=== PATIENT | male | born 1965 | race Caucasian/White ===

== ENCOUNTER 2017-01-21 15:05 | Inpatient (IN) | payer MEDICAID ==
[~2017-01-21] VITALS: Ht 180.3 cm; Wt 90.7 kg
[~2017-01-21 15:05] MED LIST: CAR3125T PO; CLOP75TA41 PO; DIG0125T PO; FURO40TA PO; GABA100C PO; INSLISPI SC; LEVEMIR SC; LISI-275 PO; PANT40TA2 PO; SPIR25TA88 PO
[2017-01-21 15:49] LABS: Urine RBC None Seen /hpf (0 - 3)
[2017-01-21 16:08] LABS: Basophils # (auto) 0.1 uL; Basophils % (auto) 0.8 % (0.0-2.0); Eosinophils # (auto) 0.1 uL; Hematocrit 43.6 % (41.0-53.0); Hemoglobin 14.3 g/dL (13.5-17.5); Lymphocytes # (auto) 1.6 uL; Lymphocytes % (auto) 23.1 % (10.0-50.0); Mean Corpuscular Hemoglobin 29.6 pg (28.0-32.0); Mean Corpuscular Hgb Conc. 32.8 g/dL (32.0-36.0); Mean Corpuscular Volume 90.2 fL (80.0-100.0); Mean Platelet Volume 7.6 fL (6.9-10.8); Monocytes # (auto) 0.6 uL; Monocytes % (auto) 8.8 % (0.0-12.0); Neutrophils # (auto) 4.4 uL; Neutrophils % (auto) 65.3 % (37.0-80.0); Nucleated Red Blood Cells % 0.1 %; Platelet Count (auto) 199 10^3/uL (140-450); Red Cell Distribution Width 18.1 % (11.8-14.3); White Blood Cell 6.7 10^3/uL (4.4-10.8)
[2017-01-21 16:11] LABS: Albumin 3.2 g/dL (3.4-5.0); Anion Gap 12 (5-15); Aspartate Aminotransferase 18 U/L (15-37); BUN/Creatinine Ratio 18.2; Blood Urea Nitrogen 16 mg/dL (7-18); Calcium 8.3 mg/dL (8.5-10.1); Carbon Dioxide 19 mmol/L (21-32); Chloride 109 mmol/L (98-107); GFR African American 117 mL/min; GFR Non-African American 97 mL/min; Glucose 279 mg/dL (74-106); Sodium 140 mmol/L (136-145)
[2017-01-21 16:15] LABS: Urine Bilirubin Negative (Negative); Urine Blood Negative /uL (Negative); Urine Color Yellow (Yellow); Urine Glucose 4+ mg/dL (Normal); Urine Ketone Negative (Negative); Urine Nitrite Negative (Negative); Urine Squamous Epithelial Cell FEW /hpf (<5); Urine Urobilinogen Normal (Negative)
[2017-01-21 16:16] LABS: Alkaline Phosphatase 89 U/L (45-117); Bilirubin, Total 0.7 mg/dL (0.2-1.0); Total Protein 7.1 g/dL (6.4-8.2)
[2017-01-21] MEDS ORDERED: ASPirin 81 mg TAB PO ONE (17:45)
[2017-01-21] MEDS ORDERED: METOPROLOL TARTRATE 50 MG TAB PO ONE (17:45)
[2017-01-21] MEDS ORDERED: METOPROLOL TARTRATE 1MG/1ML-5ML VIAL IV ONE (17:45)
[2017-01-21] MEDS ORDERED: LORazepam 2MG/ML-1ML VIAL IV ONE (17:45)
[2017-01-21] MEDS ORDERED: DEXTROSE (50%) 50ML SYRG IV PRN (18:15)
[2017-01-21] MEDS ORDERED: METOPROLOL TARTRATE 25 MG TAB PO ONE (18:15)
[2017-01-21] MEDS ORDERED: NITROGLYCERIN 0.4 MG SL TAB SL PRN (18:15)
[2017-01-21] MEDS ORDERED: MORPHINE SULF INJ 2 MG/ML SYRINGE 1ML IV PRN (18:15)
[2017-01-21 20:15] VITALS: BP_SYST 108; BP_SYST 119; BP_DIAS 77; BP_DIAS 82
[2017-01-21] MEDS: METOPROLOL TARTRATE 25 MG TAB PO SCH (21:56)
[2017-01-21] MEDS: ACCU-CHEK COMFORT CURVE STRIP VI SCH (22:01)
[2017-01-21] MEDS: InsuLIN REG 1unit/0.01ml Soln (100units/ml) SC SCH ×2 (22:02→22:12)
[2017-01-22] MEDS ORDERED: ACETAMINOPHEN 500 MG TAB PO PRN (04:15)
[2017-01-22 05:00] VITALS: BP 109/79
[2017-01-22] MEDS: ONDANSETRON HCL 4 MG/2 ML VIAL IV PRN (05:12)
[2017-01-22] MEDS: HYDROcodone-ACET 5/325MG TAB PO PRN ×2 (05:12→21:37)
[2017-01-22] MEDS: InsuLIN REG 1unit/0.01ml Soln (100units/ml) SC SCH ×4 (06:37→21:58)
[2017-01-22] MEDS: ACCU-CHEK COMFORT CURVE STRIP VI SCH ×4 (06:37→21:57)
[2017-01-22 07:11] LABS: Anion Gap 10 (5-15); BUN/Creatinine Ratio 26.3; Blood Urea Nitrogen 20 mg/dL (7-18); Calcium 8.4 mg/dL (8.5-10.1); Carbon Dioxide 17 mmol/L (21-32); Chloride 109 mmol/L (98-107); GFR African American 139 mL/min; GFR Non-African American 114 mL/min; Glucose 198 mg/dL (74-106); Potassium 4.5 mmol/L (3.5-5.1); Sodium 136 mmol/L (136-145)
[2017-01-22 08:51] VITALS: BP 94/65
[2017-01-22] MEDS ORDERED: FUROSEMIDE 40 MG TAB PO SCH (10:00)
[2017-01-22] MEDS: ASPirin 81 mg TAB PO SCH (10:55)
[2017-01-22] MEDS: LISINOPRIL 5 MG TAB PO SCH (11:00)
[2017-01-22] MEDS: SPIRONOLACTONE 25 MG TAB PO SCH (11:00)
[2017-01-22] MEDS: DIGOXIN 0.125 MG TAB PO SCH (11:00)
[2017-01-22] MEDS: METOPROLOL TARTRATE 25 MG TAB PO SCH ×2 (11:00→21:57)
[2017-01-22] MEDS: PANTOPRAZOLE 40 MG TAB PO SCH (11:00)
[2017-01-22] MEDS: POTASSIUM CHL 20 Meq TABLET PO SCH (11:01)
[2017-01-22] MEDS: AMIODARONE HCL 200 MG TAB PO SCH ×2 (11:01→21:37)
[2017-01-22] MEDS ORDERED: FUROSEMIDE 20 MG/2 ML VIAL IV ONE (11:30)
[2017-01-22] MEDS ORDERED: POTASSIUM CHL 20 Meq TABLET PO ONE (11:30)
[2017-01-22 12:51] VITALS: BP 93/50
[2017-01-22] MEDS ORDERED: PATIENTS OWN MEDICATION (xarelto 20 MG) PO SCH (17:00)
[2017-01-22] MEDS: RIVAROXABAN 20 MG TAB PO SCH (17:01)
[2017-01-22 17:03] VITALS: BP 164/74
[2017-01-22 22:00] VITALS: BP 127/70
[2017-01-23 05:00] VITALS: BP 111/72
[2017-01-23] MEDS: InsuLIN REG 1unit/0.01ml Soln (100units/ml) SC SCH ×5 (06:26→22:02)
[2017-01-23] MEDS: ACCU-CHEK COMFORT CURVE STRIP VI SCH ×4 (07:18→21:54)
[2017-01-23 08:40] LABS: BUN/Creatinine Ratio 23.7; Calcium 8.3 mg/dL (8.5-10.1); Potassium 4.2 mmol/L (3.5-5.1)
[2017-01-23 09:00] VITALS: BP 105/75
[2017-01-23] MEDS: POTASSIUM CHL 20 Meq TABLET PO SCH (09:33)
[2017-01-23] MEDS: AMIODARONE HCL 200 MG TAB PO SCH ×2 (09:33→21:53)
[2017-01-23] MEDS: SPIRONOLACTONE 25 MG TAB PO SCH (09:33)
[2017-01-23] MEDS: PANTOPRAZOLE 40 MG TAB PO SCH (09:33)
[2017-01-23] MEDS: FUROSEMIDE 20 MG TAB PO SCH (09:34)
[2017-01-23] MEDS: LISINOPRIL 5 MG TAB PO SCH (09:34)
[2017-01-23] MEDS: ASPirin 81 mg TAB PO SCH (09:34)
[2017-01-23] MEDS: DIGOXIN 0.125 MG TAB PO SCH (09:34)
[2017-01-23] MEDS: METOPROLOL TARTRATE 25 MG TAB PO SCH ×2 (09:35→22:00)
[2017-01-23] MEDS: HYDROcodone-ACET 5/325MG TAB PO PRN (11:42)
[2017-01-23 13:00] VITALS: BP 105/58
[2017-01-23] MEDS: ONDANSETRON HCL 4 MG/2 ML VIAL IV PRN (15:20)
[2017-01-23 16:56] VITALS: BP 105/71
[2017-01-23] MEDS: RIVAROXABAN 20 MG TAB PO SCH (18:10)
[2017-01-23] MEDS ORDERED: ONDANSETRON HCL 4 MG/2 ML VIAL IV ONE (19:00)
[2017-01-23] MEDS: TEMAZEPAM 15 MG CAP PO PRN (21:53)
[2017-01-23 22:00] VITALS: BP 104/66
[2017-01-24] MEDS: ONDANSETRON HCL 4 MG/2 ML VIAL IV PRN ×2 (01:38→13:29)
[2017-01-24 05:00] VITALS: BP 110/77
[2017-01-24] MEDS: ACCU-CHEK COMFORT CURVE STRIP VI SCH ×4 (06:47→21:48)
[2017-01-24] MEDS: InsuLIN REG 1unit/0.01ml Soln (100units/ml) SC SCH ×4 (06:48→21:48)
[2017-01-24 07:00] VITALS: BP 117/74
[2017-01-24] MEDS ORDERED: fentaNYL CITRATE 100 MCG/2 ML VL ONE (07:22)
[2017-01-24] MEDS ORDERED: MIDAZOLAM HCL 1MG/1ML-2 ML VIAL ONE (07:22)
[2017-01-24] MEDS ORDERED: LIDOCAINE VISCOUS 2% 15ML UD ONE (07:23)
[2017-01-24] MEDS ORDERED: NALOXONE HCL 0.4 MG/ML VIAL ONE (07:24)
[2017-01-24] MEDS ORDERED: FLUMAZENIL 0.1 MG/ML INJ 10ML MDV IV ONE (07:24)
[2017-01-24] MEDS ORDERED: LIDOCAINE VISCOUS 2% 15ML UD PO ONE (07:30)
[2017-01-24] MEDS ORDERED: fentaNYL CITRATE 100 MCG/2 ML VL IV ONE (07:30)
[2017-01-24] MEDS ORDERED: MIDAZOLAM HCL 1MG/1ML-2 ML VIAL IV ONE (07:30)
[2017-01-24] MEDS ORDERED: diphenhdrAMINE HCL 50 MG/1 ML VL ONE (08:02)
[2017-01-24] MEDS ORDERED: diphenhdrAMINE HCL 50 MG/1 ML VL IV ONE (08:45)
[2017-01-24] MEDS: DIGOXIN (250MCG/ML) 2 ML AMPULE IV ONE ×2 (08:48→16:07)
[2017-01-24] MEDS: SPIRONOLACTONE 25 MG TAB PO SCH (10:41)
[2017-01-24] MEDS: AMIODARONE HCL 200 MG TAB PO SCH ×2 (10:43→21:47)
[2017-01-24] MEDS: DIGOXIN 0.125 MG TAB PO SCH (10:43)
[2017-01-24] MEDS: PANTOPRAZOLE 40 MG TAB PO SCH (10:43)
[2017-01-24] MEDS: POTASSIUM CHL 20 Meq TABLET PO SCH (10:43)
[2017-01-24] MEDS: FUROSEMIDE 20 MG TAB PO SCH (10:44)
[2017-01-24] MEDS: METOPROLOL TARTRATE 25 MG TAB PO SCH ×2 (10:44→21:49)
[2017-01-24] MEDS: ASPirin 81 mg TAB PO SCH (10:44)
[2017-01-24] MEDS: LISINOPRIL 5 MG TAB PO SCH (10:44)
[2017-01-24 11:30] VITALS: BP 117/84
[2017-01-24 16:00] VITALS: BP 96/62
[2017-01-24] MEDS: RIVAROXABAN 20 MG TAB PO SCH (18:02)
[2017-01-24] MEDS: TEMAZEPAM 15 MG CAP PO PRN (21:47)
[2017-01-25 05:00] VITALS: BP 96/64
[2017-01-25] MEDS: ACCU-CHEK COMFORT CURVE STRIP VI SCH ×2 (07:01→11:30)
[2017-01-25] MEDS: InsuLIN REG 1unit/0.01ml Soln (100units/ml) SC SCH ×2 (07:01→11:30)
[2017-01-25 07:25] VITALS: BP 100/67
[2017-01-25 08:00] VITALS: BP 100/67
[2017-01-25] MEDS: POTASSIUM CHL 20 Meq TABLET PO SCH (09:37)
[2017-01-25] MEDS: AMIODARONE HCL 200 MG TAB PO SCH (09:37)
[2017-01-25] MEDS: ASPirin 81 mg TAB PO SCH (09:37)
[2017-01-25] MEDS: METOPROLOL TARTRATE 25 MG TAB PO SCH (09:37)
[2017-01-25] MEDS: PANTOPRAZOLE 40 MG TAB PO SCH (09:38)
[2017-01-25] MEDS: SPIRONOLACTONE 25 MG TAB PO SCH (09:38)
[2017-01-25] MEDS: DIGOXIN 0.125 MG TAB PO SCH (09:38)
[2017-01-25] MEDS: LISINOPRIL 5 MG TAB PO SCH (09:39)
[2017-01-25] MEDS: FUROSEMIDE 20 MG TAB PO SCH (09:39)
[2017-01-25 10:49] VITALS: BP 126/77
[2017-01-25 12:08] VITALS: BP 116/79
== END 2017-01-25 14:27 | disposition home or self-care (01) | DRG 194 ==
LOC: ER 15:05 → TELE 15:06 → TELE-CENTR 20:15
PROVIDERS: ADMIT Internal Medicine; ATTEND Internal Medicine
PROC: B24BZZ4 Ultrasonography of Heart with Aorta, Transesophageal (ICD-10-PCS; principal; 2017-01-24)
PROC: 5A2204Z Restoration of Cardiac Rhythm, Single (ICD-10-PCS; 2017-01-24)
DX: I11.0 Hypertensive heart disease with heart failure (principal); D68.69 Other thrombophilia; I42.9 Cardiomyopathy, unspecified; E11.65 Type 2 diabetes mellitus with hyperglycemia; I08.1 Rheumatic disorders of both mitral and tricuspid valves; I48.3 Typical atrial flutter; I48.91 Unspecified atrial fibrillation; I50.23 Acute on chronic systolic (congestive) heart failure; F17.210 Nicotine dependence, cigarettes, uncomplicated; Z79.01 Long term (current) use of anticoagulants; Z79.4 Long term (current) use of insulin; I25.2 Old myocardial infarction; Z79.899 Other long term (current) drug therapy; Z91.19 Patient's noncompliance with other medical treatment and regimen; Z83.3 Family history of diabetes mellitus; Z82.49 Family history of ischemic heart disease and other diseases of the circulatory system; Z80.2 Family history of malignant neoplasm of other respiratory and intrathoracic organs
CPT/HCPCS: 36415; 71020; 80048; 80053; 80162; 80307; 81001; 82962; 83735; 84484; 85025; 92960; 93005; 93312; 96374; 96375; 99152; 99153; A4565; J1815; J2250; J2405

== ENCOUNTER 2017-04-19 23:13 | Emergency (ER) | payer MEDICAID ==
[~2017-04-19] VITALS: Ht 180.3 cm; Wt 90.7 kg
[~2017-04-19 23:13] MED LIST changes: -CAR3125T PO; -CLOP75TA41 PO; -DIG0125T PO
[2017-04-19 23:20] VITALS: BP 131/71
== END 2017-04-20 01:06 | disposition left against medical advice (07) ==
LOC: ER 23:13
DX: R06.02 Shortness of breath (principal); Z53.21 Procedure and treatment not carried out due to patient leaving prior to being seen by health care provider
CPT/HCPCS: 71020; 93005

== ENCOUNTER 2017-08-23 19:37 | Emergency (ER) | payer MEDICAID ==
[~2017-08-23] VITALS: Ht 180.3 cm; Wt 90.7 kg
[2017-08-23 21:19] LABS: Basophils # (auto) 0 uL; Basophils % (auto) 0.6 % (0.0-2.0); Eosinophils # (auto) 0 uL; Eosinophils % (auto) 0.5 % (0.0-7.0); Hematocrit 51.9 % (41.0-53.0); Hemoglobin 16.4 g/dL (13.5-17.5); Lymphocytes # (auto) 1.2 uL; Lymphocytes % (auto) 15.6 % (10.0-50.0); Mean Corpuscular Hemoglobin 29.4 pg (28.0-32.0); Mean Corpuscular Hgb Conc. 31.6 g/dL (32.0-36.0); Mean Corpuscular Volume 92.8 fL (80.0-100.0); Monocytes # (auto) 0.7 uL; Monocytes % (auto) 9.1 % (0.0-12.0); Neutrophils # (auto) 5.7 uL; Neutrophils % (auto) 74.2 % (37.0-80.0); Nucleated Red Blood Cells % 0.2 %; Platelet Count (auto) 258 10^3/uL (140-450); Red Blood Cells 5.59 10^6/uL (4.5-5.90); Red Cell Distribution Width 16.7 % (11.8-14.3); White Blood Cell 7.7 10^3/uL (4.4-10.8)
[2017-08-23 21:40] LABS: Anion Gap 12 (5-15); Carbon Dioxide 17 mmol/L (21-32); Chloride 101 mmol/L (98-107); Potassium 4.8 mmol/L (3.5-5.1); Sodium 130 mmol/L (136-145)
[2017-08-23 21:41] LABS: Alanine Aminotransferase 83 U/L (16-61); Alkaline Phosphatase 239 U/L (45-117); Aspartate Aminotransferase 97 U/L (15-37); Bilirubin, Total 1.1 mg/dL (0.2-1.0); Blood Urea Nitrogen 29 mg/dL (7-18); Calcium 8.4 mg/dL (8.5-10.1); GFR African American 81 mL/min; GFR Non-African American 67 mL/min; Glucose 360 mg/dL (74-106)
[2017-08-23 21:42] LABS: Albumin 2.8 g/dL (3.4-5.0); Amylase 33 U/L (25-115); Lipase 211 U/L (73-393); Magnesium 1.9 mg/dL (1.6-2.6); Total Protein 7.6 g/dL (6.4-8.2)
[2017-08-23] MEDS ORDERED: SODIUM CHLORIDE 0.9% 1,000 ML IV ONE (21:45)
[2017-08-24 05:14] VITALS: BP 133/87
[2017-08-24] MEDS ORDERED: FUROSEMIDE 20 MG/2 ML VIAL IV ONE (06:00)
== END 2017-08-24 06:32 | disposition home or self-care (01) ==
LOC: ER 19:37
DX: I11.0 Hypertensive heart disease with heart failure (principal); I50.9 Heart failure, unspecified; I48.91 Unspecified atrial fibrillation; E11.9 Type 2 diabetes mellitus without complications; F17.210 Nicotine dependence, cigarettes, uncomplicated; F12.10 Cannabis abuse, uncomplicated; I25.2 Old myocardial infarction
CPT/HCPCS: 36415; 71046; 74176; 80053; 82150; 83690; 83735; 83880; 84484; 85025; 93005; 96361; 96374; 99285; J1940

== ENCOUNTER 2019-02-12 18:31 | Inpatient (IN) | payer MEDICAID ==
[~2019-02-12] VITALS: Ht 152.4 cm; Wt 97.5 kg
[~2019-02-12 18:31] MED LIST changes: +FURO1TAB31 PO; -FURO40TA PO
[2019-02-12 19:13] LABS: Basophils # (auto) 0.1 uL; Basophils % (auto) 0.9 % (0.0-2.0); Eosinophils # (auto) 0.1 uL; Eosinophils % (auto) 0.6 % (0.0-7.0); Hemoglobin 16.2 g/dL (13.5-17.5); Mean Corpuscular Hemoglobin 30.6 pg (28.0-32.0); Mean Corpuscular Volume 92.7 fL (80.0-100.0); Monocytes # (auto) 0.6 uL; Monocytes % (auto) 5.8 % (0.0-12.0); Neutrophils % (auto) 83.7 % (37.0-80.0); Platelet Count (auto) 279 10^3/uL (140-450); Red Blood Cells 5.29 10^6/uL (4.5-5.90); Red Cell Distribution Width 15.1 % (11.8-14.3); White Blood Cell 10.7 10^3/uL (4.4-10.8)
[2019-02-12 19:22] LABS: Alanine Aminotransferase 33 U/L (16-61); Albumin 2.9 g/dL (3.4-5.0); Anion Gap 9 (5-15); Aspartate Aminotransferase 13 U/L (15-37); BUN/Creatinine Ratio 13.5; Blood Urea Nitrogen 19 mg/dL (7-18); Calcium 8.6 mg/dL (8.5-10.1); Carbon Dioxide 23 mmol/L (21-32); Chloride 99 mmol/L (98-107); GFR African American 67 mL/min; GFR Non-African American 56 mL/min; Potassium 5.2 mmol/L (3.5-5.1); Sodium 131 mmol/L (136-145)
[2019-02-12 19:26] LABS: Alkaline Phosphatase 202 U/L (45-117); Bilirubin, Total 0.8 mg/dL (0.2-1.0); Total Protein 7.5 g/dL (6.4-8.2)
[2019-02-12 19:30] LABS: Glucose 457 mg/dL (74-106)
[2019-02-12] MEDS ORDERED: SODIUM CHLORIDE 0.9% 1,000 ML IV ONE (19:44)
[2019-02-12] MEDS ORDERED: CLINDAMYCIN 600MG IV 50 ML IV ONE (19:45)
[2019-02-12] MEDS ORDERED: ONDANSETRON HCL 4 MG/2 ML VIAL IV ONE (19:45)
[2019-02-12] MEDS ORDERED: MORPHINE SULFATE 4 MG/ML SYR/VIAL IV ONE (19:45)
[2019-02-13] MEDS ORDERED: ONDANSETRON HCL 4 MG/2 ML VIAL IV PRN (02:45)
[2019-02-13] MEDS ORDERED: ACETAMINOPHEN 325 MG TAB PO PRN (02:45)
[2019-02-13] MEDS ORDERED: TEMAZEPAM 15 MG CAP PO PRN (02:45)
[2019-02-13] MEDS ORDERED: FUROSEMIDE 20 MG/2 ML VIAL IV ONE (02:45)
[2019-02-13] MEDS ORDERED: ALBUTEROL SULF 2.5 MG/0.5ML(0.5%) NEB SOLN NEB PRN (02:45)
[2019-02-13] MEDS ORDERED: DEXTROSE (50%) 50ML SYRG IV PRN (02:45)
[2019-02-13 03:25] LABS: BUN/Creatinine Ratio 13.9; Potassium 4.3 mmol/L (3.5-5.1)
[2019-02-13] MEDS: cefTRIAXone 1GM/50ML D5W 50 ML IV SCH ×2 (03:52→21:00)
[2019-02-13 04:07] VITALS: BP 111/74
[2019-02-13] MEDS: PANTOPRAZOLE 40 MG TAB PO SCH (05:26)
[2019-02-13] MEDS: CLINDAMYCIN 600MG IV 50 ML IV SCH ×3 (05:26→21:35)
[2019-02-13] MEDS: GABAPENTIN 100 MG CAP PO SCH ×3 (05:26→21:35)
[2019-02-13] MEDS: InsuLIN REG 1unit/0.01ml Soln (100units/ml) SC SCH ×4 (05:26→21:40)
[2019-02-13] MEDS: ACCU-CHEK COMFORT CURVE STRIP VI SCH ×4 (05:26→21:36)
--- NOTE | 2019-02-13 07:05 | NUR ---
Respiratory note: PT IS AWAKE, AND ALERT. NO RESPIRATORY DISTRESS NOTED. SPO2 97%, HR 52, RR 18, BS CLEAR T/O. NO PRN MEDNEB TX INDICATED. PT INFORMED TO PUSH CALL BUTTON IF INCREASED WOB, SOB, OR WHEEZING OCCUR.
--- NOTE | 2019-02-13 07:50 | NUR ---
Patient in bed, asleep. No acute distress noted.
[2019-02-13 09:00] VITALS: BP 127/70
[2019-02-13] MEDS: LISINOPRIL 5 MG TAB PO SCH (09:43)
[2019-02-13] MEDS: SPIRONOLACTONE 25 MG TAB PO SCH (09:43)
[2019-02-13] MEDS: FUROSEMIDE 40 MG TAB PO SCH (09:43)
[2019-02-13] MEDS ORDERED: ASPirin 81 mg TAB PO ONE (11:15)
[2019-02-13] MEDS: HYDROcodone-ACET 5/325MG TAB PO PRN (11:37)
--- NOTE | 2019-02-13 11:37 | NUR ---
Patient stated his lower leg pain at 10/10 at this time. Rankin 5/325 PO given for pain as ordered.
--- NOTE | 2019-02-13 12:18 | NUR ---
Photos taken of the bilateral lower extremities. Wound Care forms placed on the Wound Care tray, camera returned to [facility].
[2019-02-13 13:00] VITALS: BP 130/84
[2019-02-13 17:00] VITALS: BP 127/80
[2019-02-13] MEDS: INSULIN LANTUS (GLARGINE) 1 /0.01ml (100units/ml) SC SCH (21:40)
[2019-02-13] MEDS: CARVEDILOL 3.125 MG TAB PO SCH (21:58)
[2019-02-13 22:00] VITALS: BP 127/77
[2019-02-13 22:21] LABS: Urine Bacteria NONE SEEN /hpf (None Seen); Urine Blood Negative /uL (Negative); Urine Specific Gravity 1.023 (1.001-1.035); Urine WBC <1 /hpf (0 - 3)
[2019-02-14 05:00] VITALS: BP 123/72
[2019-02-14] MEDS: InsuLIN REG 1unit/0.01ml Soln (100units/ml) SC SCH ×3 (05:38→18:19)
[2019-02-14] MEDS: GABAPENTIN 100 MG CAP PO SCH ×3 (05:38→22:08)
[2019-02-14] MEDS: CLINDAMYCIN 600MG IV 50 ML IV SCH ×3 (05:38→23:11)
[2019-02-14] MEDS: ACCU-CHEK COMFORT CURVE STRIP VI SCH ×3 (05:38→18:18)
[2019-02-14] MEDS: PANTOPRAZOLE 40 MG TAB PO SCH (05:38)
[2019-02-14 06:13] LABS: Basophils # (auto) 0 uL; Basophils % (auto) 0.6 % (0.0-2.0); Eosinophils # (auto) 0.1 uL; Eosinophils % (auto) 1.2 % (0.0-7.0); Hematocrit 44.5 % (41.0-53.0); Hemoglobin 14.9 g/dL (13.5-17.5); Lymphocytes # (auto) 1.1 uL; Lymphocytes % (auto) 12.9 % (10.0-50.0); Mean Corpuscular Hemoglobin 30.8 pg (28.0-32.0); Mean Corpuscular Hgb Conc. 33.5 g/dL (32.0-36.0); Mean Corpuscular Volume 91.9 fL (80.0-100.0); Monocytes # (auto) 0.5 uL; Monocytes % (auto) 6.2 % (0.0-12.0); Neutrophils # (auto) 6.7 uL; Neutrophils % (auto) 79.1 % (37.0-80.0); Nucleated Red Blood Cells % 0.1 %; Platelet Count (auto) 255 10^3/uL (140-450); Red Blood Cells 4.84 10^6/uL (4.5-5.90); Red Cell Distribution Width 14.8 % (11.8-14.3); White Blood Cell 8.5 10^3/uL (4.4-10.8)
[2019-02-14 07:06] LABS: BUN/Creatinine Ratio 22.1; Potassium 4.3 mmol/L (3.5-5.1)
--- NOTE | 2019-02-14 08:00 | NUR ---
Patient asleep, no acute distress noted. About 900 ml of clear, yellowish urine in the urinal noted.
[2019-02-14 09:00] VITALS: BP 120/74
--- NOTE | 2019-02-14 10:48 | NUR ---
Patient came from the bathroom.
[2019-02-14] MEDS: LISINOPRIL 5 MG TAB PO SCH (10:50)
[2019-02-14] MEDS: ASPirin 81 mg TAB PO SCH (10:51)
[2019-02-14] MEDS: SPIRONOLACTONE 25 MG TAB PO SCH (10:51)
[2019-02-14] MEDS: CARVEDILOL 3.125 MG TAB PO SCH ×2 (10:51→22:08)
[2019-02-14] MEDS: FUROSEMIDE 40 MG TAB PO SCH (10:52)
--- NOTE | 2019-02-14 11:30 | NUR ---
WOUND CARE NOTE: IN TO SEE PATIENT AT THIS TIME PER WOUND CARE CONSULT REQUEST. PATIENT WAS ADMITTED TO [facility] WITH DIAGNOSIS OF RLE CELLULITIS. CURRENT DAVID SCORE IS 18. WOUND PHOTO WAS TAKEN UPON ADMIT, BY BEDSIDE NURSE FOR REFERENCE. PATIENT HAS LONGSTANDING HISTORY WITH DIABETES. HE STATES THAT HE HAD MULTIPLE BOUTS WITH WOUNDS TO BOTH LOWER EXTREMITIES. HE DOES NOT RECALL ANY TRAUMA TO THE LEGS RECENTLY. HE IS NOTED TO HAVE ERYTHEMA AND EDEMA TO BOTH LEGS, MORE SO ON THE RIGHT LEG. THERE IS A LARGE SERUM FILLED BLISTER NOTED TO RIGHT LATERAL CALF, MEASURING 5 X 5.5 CM. NO DRAINAGE NOTED. PERIWOUND SKIN SURROUNDING THE BLISTER IS INDURATED. ELEVATED BOTH LEGS WITH PILLOWS FOR EDEMA CONTROL. APPLIED OPTIFOAM GENTLE DRESSING TO BLISTER ON RIGHT LATERAL KNEE. RECOMMEND: SKIN/WOUND CARE PLAN, PRN DRESSING CHANGE TO BLISTER ON RIGHT LATERAL KNEE, ELEVATION OF BOTH LOWER EXTREMITIES ONTO PILLOWS FOR EDEMA CONTROL, DIETARY CONSULT FOR WOUNDS, CONTINUED MONITORING BY WOUND CARE TEAM. Addendum: 02/14/19 at 1704 by Yu Perla RN Amended: Links added.
[2019-02-14 13:00] VITALS: BP 129/69
--- NOTE | 2019-02-14 15:03 | NUR ---
[id number] Yvonne (P# [phone]) called, asking if patient is going home today. Explained to Yvonne we're still waiting for the doctor to come over. Yvonne said to call her if patient is going to be discharged today, requested to transfer her call to patient's room. Transferred the call to patient's room.
--- NOTE | 2019-02-14 15:04 | NUR ---
Patient refused to pickle water pump operator the bedside phone, verbalized "I don't want to talk to anybody right now." Patient goes back to sleep.
[2019-02-14 17:00] VITALS: BP 124/88
--- NOTE | 2019-02-14 17:08 | NUR ---
Dr. Irizarry at bedside. to put in new orders.
[2019-02-14] MEDS: Ensure HIGH Protein Chocolate 8oz Bottle PO SCH (18:00)
--- NOTE | 2019-02-14 19:20 | NUR ---
Opening Shift Note Assumed care of patient, awake and alert. No S/S of distress/SOB or pain. Bed in lowest locked position, side rails up x2, call light within reach. Instructed on POC and to call for assist PRN, will continue to monitor for changes Q1hr and PRN.
[2019-02-14] MEDS: cefTRIAXone 1GM/50ML D5W 50 ML IV SCH (22:08)
[2019-02-14] MEDS: INSULIN LANTUS (GLARGINE) 1 /0.01ml (100units/ml) SC SCH (23:11)
[2019-02-15] MEDS: ACCU-CHEK COMFORT CURVE STRIP VI SCH ×4 (00:36→17:27)
[2019-02-15] MEDS: InsuLIN REG 1unit/0.01ml Soln (100units/ml) SC SCH ×4 (00:37→17:28)
[2019-02-15 05:14] VITALS: BP 129/73
[2019-02-15 06:09] LABS: Basophils # (auto) 0.1 uL; Basophils % (auto) 0.7 % (0.0-2.0); Eosinophils # (auto) 0.1 uL; Eosinophils % (auto) 1.3 % (0.0-7.0); Hematocrit 48.5 % (41.0-53.0); Hemoglobin 16.4 g/dL (13.5-17.5); Lymphocytes # (auto) 1.4 uL; Lymphocytes % (auto) 15.7 % (10.0-50.0); Mean Corpuscular Hemoglobin 31.2 pg (28.0-32.0); Mean Corpuscular Hgb Conc. 33.7 g/dL (32.0-36.0); Mean Corpuscular Volume 92.5 fL (80.0-100.0); Monocytes # (auto) 0.6 uL; Monocytes % (auto) 6.5 % (0.0-12.0); Neutrophils % (auto) 75.8 % (37.0-80.0); Nucleated Red Blood Cells % 0.1 %; Platelet Count (auto) 288 10^3/uL (140-450); Red Blood Cells 5.25 10^6/uL (4.5-5.90); Red Cell Distribution Width 14.3 % (11.8-14.3); White Blood Cell 9.2 10^3/uL (4.4-10.8)
[2019-02-15] MEDS: GABAPENTIN 100 MG CAP PO SCH ×3 (06:25→22:12)
[2019-02-15] MEDS: PANTOPRAZOLE 40 MG TAB PO SCH (06:25)
[2019-02-15] MEDS: CLINDAMYCIN 600MG IV 50 ML IV SCH ×3 (06:25→23:01)
[2019-02-15] MEDS: HYDROcodone-ACET 5/325MG TAB PO PRN ×2 (06:37→22:26)
--- NOTE | 2019-02-15 06:50 | NUR ---
Closing Note Patient lying in bed, eyes closed, respirations even and unlabored, appears asleep. No s/s of distress. Bed in lowest locked position, side rails up x2, call light within reach. Will endorse care to dayshift RN.
[2019-02-15 06:55] LABS: Calcium 8.5 mg/dL (8.5-10.1); Potassium 4.4 mmol/L (3.5-5.1)
--- NOTE | 2019-02-15 07:45 | NUR ---
Patient in bed, asleep, no acute distress noted.
[2019-02-15] MEDS: Ensure HIGH Protein Chocolate 8oz Bottle PO SCH ×3 (08:00→18:00)
--- NOTE | 2019-02-15 09:41 | NUR ---
PATIENT REFUSED 0900 VITALS
--- NOTE | 2019-02-15 10:30 | NUR ---
T = 97.7 F, P = 79, RR = 18, BP =117/76, O2 Sat = 94% on room air. Patient is ambulatory to the bathroom.
[2019-02-15] MEDS: LISINOPRIL 5 MG TAB PO SCH (10:34)
[2019-02-15] MEDS: FUROSEMIDE 40 MG TAB PO SCH (10:35)
[2019-02-15] MEDS: CARVEDILOL 3.125 MG TAB PO SCH ×2 (10:35→22:12)
[2019-02-15] MEDS: ASPirin 81 mg TAB PO SCH (10:35)
[2019-02-15] MEDS: SPIRONOLACTONE 25 MG TAB PO SCH (10:35)
--- NOTE | 2019-02-15 10:37 | NUR ---
Patient refused Ensure, asked for sandwich and milk 2%.
--- NOTE | 2019-02-15 12:40 | NUR ---
Patient shoved his bedside table on the right side, upset that I have to check his blood sugar before lunch. Explained to patient I was supposed to do the blood sugar check earlier but called by a family member to attend to my other patient. Patient verbalized "Whatever."
[2019-02-15 13:00] VITALS: BP 115/75
--- NOTE | 2019-02-15 13:10 | NUR ---
Dr. Irizarry came over. to keep the patient for today, for possible discharge tomorrow, Saturday.
[2019-02-15 17:00] VITALS: BP 109/78
--- NOTE | 2019-02-15 21:30 | NUR ---
Respiratory note: PT ASSESSED FOR PRN MED NEB TX. HR 85, RR 16, SPO2 96% ON R/A. NO SIGNS OF ANY RESPIRATORY DISTRESS NOTED. ADVISED PT TO CALL IF TX IS NEEDED. RT NAME AND PAGER NUMBER WRITTEN ON PT'S BOARD.
[2019-02-15 22:00] VITALS: BP 103/68
[2019-02-15] MEDS: cefTRIAXone 1GM/50ML D5W 50 ML IV SCH (22:12)
--- NOTE | 2019-02-15 22:15 | NUR ---
Regarding Wound Patient stating, "I think my blister might have popped." Optifoam peeled back, blister noted to be still intact. Offered to change dressing, patient stated, "No, I don't want my blister to pop." Patient educated on importance of dressing change, patient still states, "No." Optifoam noted to be clean, dry, and intact. No s/s of distress. Will continue to monitor.
[2019-02-15] MEDS: INSULIN LANTUS (GLARGINE) 1 /0.01ml (100units/ml) SC SCH (22:26)
[2019-02-16] MEDS: InsuLIN REG 1unit/0.01ml Soln (100units/ml) SC SCH ×3 (00:18→12:24)
[2019-02-16] MEDS: ACCU-CHEK COMFORT CURVE STRIP VI SCH ×3 (00:18→12:16)
[2019-02-16 01:21] VITALS: BP 133/75
[2019-02-16 05:05] VITALS: BP 109/71
[2019-02-16] MEDS: GABAPENTIN 100 MG CAP PO SCH (06:11)
[2019-02-16] MEDS: CLINDAMYCIN 600MG IV 50 ML IV SCH (06:11)
[2019-02-16] MEDS: PANTOPRAZOLE 40 MG TAB PO SCH (06:12)
--- NOTE | 2019-02-16 06:12 | NUR ---
Bowel Movement Per patient, last bowel movement "yesterday," 02/15/19. No s/s of distress. Will continue to monitor.
[2019-02-16 06:24] LABS: Calcium 8.8 mg/dL (8.5-10.1); Potassium 4.3 mmol/L (3.5-5.1)
[2019-02-16 06:25] LABS: BUN/Creatinine Ratio 24.1
[2019-02-16 06:30] LABS: Basophils # (auto) 0.1 uL; Basophils % (auto) 0.6 % (0.0-2.0); Eosinophils # (auto) 0.1 uL; Eosinophils % (auto) 1.4 % (0.0-7.0); Hematocrit 50.5 % (41.0-53.0); Hemoglobin 17.2 g/dL (13.5-17.5); Lymphocytes # (auto) 1.7 uL; Lymphocytes % (auto) 18.7 % (10.0-50.0); Mean Corpuscular Volume 91.3 fL (80.0-100.0); Monocytes # (auto) 0.7 uL; Monocytes % (auto) 7.7 % (0.0-12.0); Neutrophils # (auto) 6.4 uL; Neutrophils % (auto) 71.6 % (37.0-80.0); Nucleated Red Blood Cells % 0.1 %; Platelet Count (auto) 319 10^3/uL (140-450); Red Blood Cells 5.53 10^6/uL (4.5-5.90); Red Cell Distribution Width 15.1 % (11.8-14.3); White Blood Cell 8.9 10^3/uL (4.4-10.8)
--- NOTE | 2019-02-16 06:44 | NUR ---
PRN [place] TX NOT INDICATED AT THIS TIME. PT IS AWAKE, ALERT AND ORIENTED. PT ON RA, 94% O2 SATS, HR 92 BPM, RR18 BPM. BS ARE CLEAR TO AUSCULTATION. SKIN IS DRY AND WARM TO THE TOUCH. PT DENIES SOB [place] OTHER RESPIRATORY DISTRESS. PT INSTRUCTED TO CALL IF [place] TX IS INDICATED. PT VERBALIZED UNDERSTANDING.
--- NOTE | 2019-02-16 06:55 | NUR ---
Closing Note Patient lying in bed, eyes closed, respirations even and unlabored, appears asleep. Patient awakens to name and touch. No s/s of distress. Bed in lowest locked position, side rails up x2, call light within reach. Care endorsed to dayshift RN.
--- NOTE | 2019-02-16 07:15 | NUR ---
Opening Shift Note Received report,assumed care of patient, awake and alert. No S/S of distress/SOB or pain. Bed in lowest locked position, side rails up x2, call light within reach. Instructed on POC and to call for assist PRN, will continue to monitor for changes Q1hr and PRN.
[2019-02-16 09:00] VITALS: BP 111/63
[2019-02-16] MEDS: Ensure HIGH Protein Chocolate 8oz Bottle PO SCH ×2 (09:32→12:17)
[2019-02-16] MEDS: SPIRONOLACTONE 25 MG TAB PO SCH (10:15)
[2019-02-16] MEDS: LISINOPRIL 5 MG TAB PO SCH (10:16)
[2019-02-16] MEDS: ASPirin 81 mg TAB PO SCH (10:16)
[2019-02-16] MEDS: CARVEDILOL 3.125 MG TAB PO SCH (10:16)
[2019-02-16] MEDS: FUROSEMIDE 40 MG TAB PO SCH (10:17)
[2019-02-16] MEDS: HYDROcodone-ACET 5/325MG TAB PO PRN (10:23)
--- NOTE | 2019-02-16 10:30 | NUR ---
MD VISIT DR. DEL CASTILLO HERE TO SEE AND EXAMINED PATIENT,RECEIVED ORDER FOR DISCHARGE
--- NOTE | 2019-02-16 11:30 | NUR ---
CALLED AND SPOKE TO VESNA RE DISCHARGE AND PROPERTY ANALYST STATED WILL BE HERE AT 1330 FOR PROPERTY ANALYST
[2019-02-16 12:50] VITALS: BP 121/77
[2019-02-16 13:00] VITALS: BP 121/77
--- NOTE | 2019-02-16 14:00 | NUR ---
PATIENT AWAITING FOR FAMILY FOR COLLAR FELLER
--- NOTE | 2019-02-16 15:00 | NUR ---
Discharge instructions and prescription given as ordered. Encourage to follow up with PMD as instructed. All questions and concerns addressed. Patient verbalized understanding. Medication reconciliation form completed and copy given to patient. Noted to have a POM band but unable to find paper for patient own medication,called Pharmacy spoke to Vanessa can not find any paper works or record that patient has Home medications held in Pharmacy . IV removed with catheter intact, pressure dressing applied, Patient taken to vehicle ambulatory with all personal belongings, accompanied by family member. No distress noted at time of departure.
== END 2019-02-16 15:05 | disposition home or self-care (01) | DRG 194 ==
LOC: ER 18:34 → OVERFLOW 18:35 → CENTRAL 02-13 05:00
PROVIDERS: ADMIT Nurse Practitioner; ATTEND Internal Medicine
DX: I13.0 Hypertensive heart and chronic kidney disease with heart failure and stage 1 through stage 4 chronic kidney disease, or unspecified chronic kidney disease (principal); N17.9 Acute kidney failure, unspecified; E44.0 Moderate protein-calorie malnutrition; D68.69 Other thrombophilia; E11.21 Type 2 diabetes mellitus with diabetic nephropathy; E11.65 Type 2 diabetes mellitus with hyperglycemia; E11.22 Type 2 diabetes mellitus with diabetic chronic kidney disease; I48.92 Unspecified atrial flutter; I48.0 Paroxysmal atrial fibrillation; E66.01 Morbid (severe) obesity due to excess calories; I50.43 Acute on chronic combined systolic (congestive) and diastolic (congestive) heart failure; E87.1 Hypo-osmolality and hyponatremia; L03.115 Cellulitis of right lower limb; L03.116 Cellulitis of left lower limb; F17.210 Nicotine dependence, cigarettes, uncomplicated; M25.461 Effusion, right knee; F12.90 Cannabis use, unspecified, uncomplicated; I11.0 Hypertensive heart disease with heart failure; N18.9 Chronic kidney disease, unspecified; Z79.4 Long term (current) use of insulin; I25.2 Old myocardial infarction; Z68.41 Body mass index [BMI] 40.0-44.9, adult; Z83.3 Family history of diabetes mellitus; Z82.49 Family history of ischemic heart disease and other diseases of the circulatory system
CPT/HCPCS: 36415; 71045; 73700; 80048; 80053; 81001; 82962; 83036; 83605; 83880; 84443; 84484; 84550; 85025; 85379; 93005; 93306; 93971; 94761; G0378; J0696; J1815; J2405; J3490

== ENCOUNTER 2019-04-25 15:51 | Inpatient (IN) | payer MEDICAID ==
[~2019-04-25] VITALS: Ht 180.3 cm; Wt 102.3 kg
[2019-04-25 16:32] LABS: Basophils # (auto) 0.1 uL; Eosinophils # (auto) 0 uL; Eosinophils % (auto) 0.5 % (0.0-7.0); Hematocrit 50.1 % (41.0-53.0); Hemoglobin 16.5 g/dL (13.5-17.5); Lymphocytes # (auto) 0.8 uL; Lymphocytes % (auto) 11.7 % (10.0-50.0); Mean Corpuscular Hemoglobin 30.9 pg (28.0-32.0); Mean Corpuscular Volume 93.7 fL (80.0-100.0); Monocytes # (auto) 0.5 uL; Monocytes % (auto) 7.3 % (0.0-12.0); Neutrophils # (auto) 5.7 uL; Neutrophils % (auto) 79.5 % (37.0-80.0); Platelet Count (auto) 177 10^3/uL (140-450); Red Blood Cells 5.34 10^6/uL (4.5-5.90); Red Cell Distribution Width 16.5 % (11.8-14.3); White Blood Cell 7.2 10^3/uL (4.4-10.8)
[2019-04-25 16:50] LABS: Albumin 2.9 g/dL (3.4-5.0); Calcium 8.3 mg/dL (8.5-10.1); Potassium 4.7 mmol/L (3.5-5.1)
[2019-04-25 16:54] LABS: BUN/Creatinine Ratio 15.9; Bilirubin, Total 0.8 mg/dL (0.2-1.0)
[2019-04-25] MEDS ORDERED: DEXTROSE (50%) 50ML SYRG IV PRN (18:45)
[2019-04-25] MEDS ORDERED: NITROGLYCERIN 0.4 MG SL TAB SL PRN (18:45)
[2019-04-25] MEDS ORDERED: FUROSEMIDE 20 MG/2 ML VIAL IV ONE (18:45)
[2019-04-25] MEDS ORDERED: MORPHINE SULF INJ 2 MG/ML SYRINGE 1ML IV PRN (18:45)
[2019-04-25 19:09] LABS: CRP High Sensitivity 0.84 mg/dL (< 0.3)
--- NOTE | 2019-04-25 20:45 | NUR ---
Telemetry admit from [facility] admitted to Telemetry unit after SBAR received. Patient oriented to Aixa brandt RN, unit, room, bed, and unit policies regarding patient care and visiting hours. Patient now on continuous telemetry monitoring, tele box # and telemetry reading on arrival to unit is SINUS TACH 112. Patient weighed by bedscale and encouraged to call if they need something. All questions and concerns addressed, patient verbalized understanding.
[2019-04-25] MEDS: ACCU-CHEK COMFORT CURVE STRIP VI SCH (21:13)
[2019-04-25] MEDS: GABAPENTIN 100 MG CAP PO SCH (21:13)
[2019-04-25] MEDS: InsuLIN REG 1unit/0.01ml Soln (100units/ml) SC SCH (21:19)
[2019-04-25 22:00] VITALS: BP 129/83
--- NOTE | 2019-04-25 22:10 | NUR ---
GAVE REPORT TO HUDSON DEWEY.
[2019-04-26] MEDS: GABAPENTIN 100 MG CAP PO SCH ×3 (05:36→21:05)
[2019-04-26] MEDS: InsuLIN REG 1unit/0.01ml Soln (100units/ml) SC SCH ×4 (05:37→21:05)
[2019-04-26] MEDS: ACCU-CHEK COMFORT CURVE STRIP VI SCH ×4 (05:37→21:05)
[2019-04-26 05:47] VITALS: BP 128/93
[2019-04-26] MEDS: FUROSEMIDE 20 MG/2 ML VIAL IV SCH ×2 (06:03→11:06)
--- NOTE | 2019-04-26 07:30 | NUR ---
Opening Shift Note Assumed care of patient, awake, alert, and oriented. No S/S of distress/SOB or pain. Bed in lowest/locked position, call light within reach. Instructed on POC and to call for assist PRN. Will continue to monitor for changes Q1hr and PRN. Addendum: 04/26/19 at 1230 by MARIOLA ALMAGUER RN RN PATIENT BLE HYPERPIGMENTED, COOL TO TOUCH, WEAK PULSES, CAP REFILL <5 SECS
[2019-04-26 09:30] VITALS: BP 119/94
--- NOTE | 2019-04-26 09:50 | NUR ---
US TECH AT BEDSIDE REQUESTING PRIMARY RN TO ASSESS PATIENT D/T ALOC Addendum: 04/26/19 at 1233 by MARIOLA ALMAGUER RN RN PER TECH, PATIENT HR DROPPED TO 40BPM THEN RAISED UP TO 70BPM
[2019-04-26] MEDS ORDERED: PANTOPRAZOLE 40 MG TAB PO SCH (10:00)
--- NOTE | 2019-04-26 10:00 | NUR ---
ROSALIA SHER RE: PATIENT ASSESSMENT. B/P 133/90, HR 81BPM, 99% O2 SAT ON 3L N/C. TEMP 98.2 F. RR 16BPM. BLOOD SUGAR 336. PATIENT DIAPHORETIC WITH ALOC. NASAL CANNULA AT 3LPM. RAISED HOB. PATIENT RESPONDING TO VERBAL STIMULI. AWAITING RETURN PHONE CALL
[2019-04-26] MEDS ORDERED: DEXTROSE (50%) 50ML SYRG IV PRN (10:30)
--- NOTE | 2019-04-26 10:30 | NUR ---
MD DR AVENDANO AT BEDSIDE ASSESSING PATIENT. DISCUSSING POC WITH PRIMARY RN AND MARKETING AREA MANAGER. DR AVENDANO REQUESTING TO UPGRADE PATIENT TO NOE. NEW ORDERS RECEIVED/CARRIED OUT. WILL CONTINUE TO MONITOR
[2019-04-26] MEDS: LISINOPRIL 5 MG TAB PO SCH (11:07)
[2019-04-26] MEDS: SPIRONOLACTONE 25 MG TAB PO SCH (11:07)
[2019-04-26] MEDS: PANTOPRAZOLE 40 MG TAB PO SCH (11:07)
[2019-04-26] MEDS: ENOXAPARIN SOD 40 MG/0.4 ML SYRINGE SC SCH (11:08)
--- NOTE | 2019-04-26 12:05 | NUR ---
Transferred to NOE from [facility] GLOVER transferred to NOE via hospital bed on structural biologist, and portable 02. Patient connected to unit monitoring and oxygen, and weighed by bedscale. Patient oriented to TIM GIBSON RN primary RN, unit, room, bed, and unit policies regarding patient care and visiting hours. All questions and concerns addressed, patient verbalized understanding.
--- NOTE | 2019-04-26 12:05 | NUR ---
TRANSFER NOE TRANSFER, SBAR GIVEN TO HUDSON CASAREZ. PATIENT TRANSFERRED TO ROOM 262. NO S/S SOB, DISTRESS, OR PAIN AT TRANSFER.
--- NOTE | 2019-04-26 12:45 | NUR ---
Dr. Espinoza at the bedside, plan of care discussed with patient, possible Left HC tomorrow. NPO after midnight, patient made aware.
--- NOTE | 2019-04-26 13:52 | NUR ---
Lunch tray provided.
[2019-04-26 13:59] LABS: Potassium 3.7 mmol/L (3.5-5.1)
[2019-04-26 14:05] LABS: Albumin 2.6 g/dL (3.4-5.0); BUN/Creatinine Ratio 23.2; Calcium 8.2 mg/dL (8.5-10.1)
[2019-04-26 14:08] LABS: Bilirubin, Total 0.6 mg/dL (0.2-1.0); Total Protein 6.4 g/dL (6.4-8.2)
--- NOTE | 2019-04-26 14:20 | NUR ---
Patient is sleeping almost all the time, woke up by calling his name, EKG showing SR to sinus tachycardia HR 90-110 with PAC and PVC, room air O2 saturation 90%, continue O2 NC 3 LPM. Will continue plan of care and monitor.
[2019-04-26 15:04] LABS: INR 1.23 (0.9-1.15)
--- NOTE | 2019-04-26 15:30 | NUR ---
WOUND CARE NOTE: Wound care consult received from nursing. Patient is a 53 yo male admitted for acute on chronic systolic and diastolic heart failure. Patient with a history of CHF, HTN, hyperlipidemia, diabetes and afib. Patient is very drowsy, but alert and denies pain. Last Jovanny score is 17. Patient noted to have hemosiderin stained bilateral lower extremities and small lacerations to right and left plantar feet. No drainage noted. Wounds appear to be fissures from dry cracked skin. No other open wounds noted. RECOMMENDATIONS: Nursing to cleanse bilateral lower extremities with mild soap and water, pat dry, paint lacerations/fissures with betadine and leave open to air; no further need by wound care team.
[2019-04-26 16:00] VITALS: BP 119/84
--- NOTE | 2019-04-26 16:15 | NUR ---
Patient woke up for blood sugar check, and asking for snack, stated that he feeling hungry. Snack provided, consent also obtained at this time.
--- NOTE | 2019-04-26 18:17 | NUR ---
Patient sitting up on the bed, Diner tray provided.
--- NOTE | 2019-04-26 19:45 | NUR ---
Opening Shift Note Assumed care of patient, lying on bed, sleeping. Breathing even and nonlabored, No S/S of distress/SOB or pain. Saline lock at right hand, CDI site. Due to void. Bed in low position, call light within reach, fall and safety precaution in place, all alarms are audible. This nurse will instruct on POC / procedure to patient when wakes up, will continue to monitor for changes Q1hr and PRN.
--- NOTE | 2019-04-26 21:26 | NUR ---
Condition update/ supplement, pain Pt woke up after 100% dinner finished and asked for sandwich and milk several times. AccCheck after dinner at 20.30pm 302mg/dl, insulin given per sliding scale. Pt well aware that he is going for a procedure tomorrow and has to be NPO after midnight. Pt also c/o severe pain at his right sole, pt rolling in bed left and right and touching his legs, stated pain 10/10. Instructed Pt to be relax and calm down, deep breath in and out to help relaxation and ease the pain. Paged Hospitalist for pain medicine prn. Neurontin given per order. Pt stated that he takes [place] at home for pain. Pt can not remember [place] dosage that he took at home. Await Hospitalist to call back. Addendum: 04/26/19 at 2134 by Linda Omalley RN A sandwich and one faye of milk provided.
--- NOTE | 2019-04-26 21:52 | NUR ---
Condition update Pt finished a sandwich and a faye of milk. Pt sleeping on bed. Continue care.
--- NOTE | 2019-04-26 21:55 | NUR ---
Condition update Pt woke up and pushed a call light. Pt asked if can have another sandwich, and asked for a pain medicine. Still await hospitalist to call back. Jell-o sugar free provided.
--- NOTE | 2019-04-26 21:57 | NUR ---
Pain medicine Pt's condition notified. New order received, TORB and verified correct, will give pain med as order.
[2019-04-26] MEDS: HYDROcodone-ACET 5/325MG TAB PO PRN ×2 (22:20→22:35)
--- NOTE | 2019-04-26 22:21 | NUR ---
Condition update/ sleeping after eating Pt finished 2 jell-o, lying on bed with eyes closed, no moaning, s/s of pain, will withhold [place] for now until Pt wakes up. Continue care.
[2019-04-27] VITALS: BP 124/53
--- NOTE | 2019-04-27 01:00 | NUR ---
Condition update Pt sleeping well, v/s stable. Pain controlled with [place]. Continue monitoring.
[2019-04-27] MEDS: ACCU-CHEK COMFORT CURVE STRIP VI SCH ×7 (01:40→23:49)
[2019-04-27 04:00] VITALS: BP 123/80
[2019-04-27] MEDS: InsuLIN REG 1unit/0.01ml Soln (100units/ml) SC SCH ×7 (04:00→23:49)
--- NOTE | 2019-04-27 05:05 | NUR ---
Urine specimen collected, will send as order.
--- NOTE | 2019-04-27 05:10 | NUR ---
Patient bathe/linen change/ wound d/s Patient given complete bath with CHG wipes. Skin integrity assessed for any changes, no new changes. BLE cleaned with mild soap and warm water. patted dry, laceration wound at the right sole area and small open scabs d/s with Betadine and left MANOJ. Complete linens changed. Pt tolerated fairly, SOB with exertion, no desaturation. Occasionally dry cough. Continue care.
[2019-04-27 05:50] LABS: Alcohol, Urine < 3.0 mg/dL (0-5); Amphetamine Screen, Urine POSITIVE (NEGATIVE); Barbiturate Scree,Urine NEGATIVE (NEGATIVE); Benzodiazephine Screen, Urine NEGATIVE (NEGATIVE); Cannabinoid Screen, Urine NEGATIVE (NEGATIVE); Cocaine Screen, Urine NEGATIVE (NEGATIVE); Opiate Scree,Urine NEGATIVE (NEGATIVE); Phencyclidine Screen, Urine NEGATIVE (NEGATIVE)
[2019-04-27] MEDS: GABAPENTIN 100 MG CAP PO SCH ×3 (06:00→21:19)
[2019-04-27 06:15] LABS: Urine Specific Gravity 1.023 (1.001-1.035)
[2019-04-27 06:16] LABS: Urine Bacteria FEW /hpf (None Seen); Urine Blood 1+ /uL (Negative); Urine WBC 0.2 /hpf (0 - 3)
[2019-04-27 06:17] LABS: Urine Mucus FEW (None Seen)
[2019-04-27 07:06] LABS: Potassium 3.9 mmol/L (3.5-5.1)
[2019-04-27 07:08] LABS: Basophils # (auto) 0 uL; Basophils % (auto) 0.6 % (0.0-2.0); Eosinophils # (auto) 0.1 uL; Eosinophils % (auto) 1.5 % (0.0-7.0); Hematocrit 45.8 % (41.0-53.0); Hemoglobin 15.5 g/dL (13.5-17.5); Lymphocytes # (auto) 1.3 uL; Lymphocytes % (auto) 17.3 % (10.0-50.0); Mean Corpuscular Hemoglobin 31.3 pg (28.0-32.0); Mean Corpuscular Hgb Conc. 33.9 g/dL (32.0-36.0); Mean Corpuscular Volume 92.3 fL (80.0-100.0); Monocytes # (auto) 0.6 uL; Neutrophils # (auto) 5.3 uL; Neutrophils % (auto) 72.6 % (37.0-80.0); Nucleated Red Blood Cells % 0.1 %; Platelet Count (auto) 165 10^3/uL (140-450); Red Blood Cells 4.96 10^6/uL (4.5-5.90); Red Cell Distribution Width 15.9 % (11.8-14.3); White Blood Cell 7.3 10^3/uL (4.4-10.8)
[2019-04-27 07:16] LABS: BUN/Creatinine Ratio 20.7; Calcium 8.2 mg/dL (8.5-10.1); Magnesium 1.7 mg/dL (1.6-2.6)
--- NOTE | 2019-04-27 07:50 | NUR ---
Opening Shift Note Assumed care of patient, patient sleeping and woke up by calling his name. No S/S of distress/SOB or pain noted. Patient stated that leave him alone, he doesn't want to do anything until he can eat, refused to have blood sugar checked, refused to talk and stated that he wants only food, patient made aware that equipment operator/laborer plan to bring him for procedure around 10am, then went back to sleep again. Instructed on POC and to call for assist PRN, will continue to monitor for changes Q1hr and PRN.
[2019-04-27 07:55] LABS: INR 1.23 (0.9-1.15); Partial Thromboplastin Time 29.6 sec (23.64-32.05)
[2019-04-27 08:00] VITALS: BP 121/71
--- NOTE | 2019-04-27 09:30 | NUR ---
Patient was sleeping, pressed the call light for the room temperature too hot, adjusted the room temperature then went back to sleep and still refused to take the medications if he couldn't eat.
--- NOTE | 2019-04-27 10:15 | NUR ---
Staffs from pharmacy laboratory technician at the bedside.
--- NOTE | 2019-04-27 10:30 | NUR ---
Dr. Felix at the bedside, seen and examined patient at this time, plan of care discussed with patient, patient made aware. Received order consultation for Dr. Cruz. Patient was taken to optical lab technician also at this time via hospital bed, connected to monitor and Oxygen.
[2019-04-27] MEDS ORDERED: MIDAZOLAM HCL 1MG/1ML-2 ML VIAL ONE (11:26)
[2019-04-27] MEDS ORDERED: fentaNYL CITRATE 100 MCG/2 ML VL ONE (11:26)
[2019-04-27] MEDS ORDERED: IODIXANOL 320MG/ML 100ML BTL IV ONE ×2 (11:28→11:33)
[2019-04-27] MEDS ORDERED: ANGIOMAX 250 MG VIAL IV ONE (11:29)
[2019-04-27] MEDS ORDERED: SODIUM CHL 0.9% 50 ML ONE (11:29)
[2019-04-27] MEDS ORDERED: LIDOCAINE 2%HCL (LOCAL ANESTH.) INJ 20ML MDV ONE (11:33)
[2019-04-27] MEDS ORDERED: ASPirin 81 mg TAB ONE (12:01)
[2019-04-27] MEDS ORDERED: TICAGRELOR 90 MG TAB ONE (12:01)
[2019-04-27 12:20] VITALS: BP 119/70
--- NOTE | 2019-04-27 12:35 | NUR ---
Patient came back from labor relations supervisor at 1220 pm, still sleepy, asking for food, waiting for Lunch tray, patient made aware that he will need to lying flat on the bed until 2.00pm, puncture site at right groin, cover with gauze and Tegaderm, no hematoma or bleeding noted. Vital sign: BP119/70 mmHg, HR 97 with SR ans PAC, O2 saturation 97% with O2 NC 3 LPM, RR 14 /min. Will continue to monitor and care, blood sugar 126.
[2019-04-27] MEDS: ENOXAPARIN SOD 40 MG/0.4 ML SYRINGE SC SCH (13:08)
[2019-04-27] MEDS: FUROSEMIDE 20 MG/2 ML VIAL IV SCH (13:08)
[2019-04-27] MEDS: LISINOPRIL 5 MG TAB PO SCH (13:08)
[2019-04-27] MEDS: PANTOPRAZOLE 40 MG TAB PO SCH (13:09)
[2019-04-27] MEDS: SPIRONOLACTONE 25 MG TAB PO SCH (13:09)
--- NOTE | 2019-04-27 13:20 | NUR ---
Patient had Lunch around 100%, no N/V noted. Still keep right leg flat. No chest pain noted.
--- NOTE | 2019-04-27 14:40 | NUR ---
Dr. Cruz at the bedside seen and examined patient at his time, plan of care discussed with patient, received order for Life vest, called and talked to Ricardo (from [facility] life vest) made aware.
--- NOTE | 2019-04-27 14:45 | NUR ---
Patient woke up, asking for snack, Jelco and crackers provided.
--- NOTE | 2019-04-27 14:50 | NUR ---
Called and left the message to Dr. Felix, Dr. Cruz already seen patient and agreed to transfer to Tele. Waiting MD to call back.
[2019-04-27 15:50] VITALS: BP 104/77
--- NOTE | 2019-04-27 16:20 | NUR ---
EKG show short run VT 8 beats while sleeping. Vital sign stable, no complaining of chest pain noted.
[2019-04-27] MEDS: HYDROcodone-ACET 5/325MG TAB PO PRN ×2 (16:44→20:54)
--- NOTE | 2019-04-27 16:45 | NUR ---
Patient asking for snack and pain pill for leg pain, Welcome given for pain management. Will continue to monitor and care.
--- NOTE | 2019-04-27 16:54 | NUR ---
Patient mostly sleeping all the time, able to sit up after 2 pm, will wake up only when feeling hungry, no complaining of chest pain noted. Puncture site at right groin no bleeding or hematoma noted. EKG showing SR with PAC and PVC, HR 90-105 /min, SBP 110-120 mmHg, no fever noted, still has high blood sugar level, insulin given. Void well after Lasix given, Still on O2 NC 3 LPM, RR 14-22 /min O2 saturation around 80-96 while sleeping due to sleep apnea. Will continue to monitor and care.
--- NOTE | 2019-04-27 18:46 | NUR ---
After provided Dinner tray, patient had 100 % of Dinner then went back to sleep.
--- NOTE | 2019-04-27 19:30 | NUR ---
Opening Shift Note Assumed care of patient in room 262. Patient currently resting. Patient reports increased breathing when sleeping and having nightmares. Will continue to monitor. Call light within reach.
[2019-04-27 20:00] VITALS: BP_SYST 103; BP_SYST 109; BP_DIAS 64; BP_DIAS 73
--- NOTE | 2019-04-27 20:00 | NUR ---
Daughter in law called Updated on patient status and answered all questions.
--- NOTE | 2019-04-27 22:07 | NUR ---
Dr Espinoza called Orders for plavix at midnight and 1x daily starting tomorrow.
[2019-04-28] MEDS ORDERED: CLOPIDOGREL 300 MG TAB PO ONE
[2019-04-28 00:09] VITALS: BP 101/80
[2019-04-28] MEDS: HYDROcodone-ACET 5/325MG TAB PO PRN ×2 (03:01→10:21)
[2019-04-28] MEDS: ACCU-CHEK COMFORT CURVE STRIP VI SCH ×4 (03:39→16:00)
[2019-04-28] MEDS: InsuLIN REG 1unit/0.01ml Soln (100units/ml) SC SCH ×4 (03:39→16:52)
[2019-04-28 03:49] VITALS: BP 98/79
--- NOTE | 2019-04-28 05:00 | NUR ---
Declined bath Wanted to go back to sleep and stated he already cleaned himself.
[2019-04-28] MEDS: GABAPENTIN 100 MG CAP PO SCH ×2 (06:13→14:00)
[2019-04-28 06:27] LABS: Basophils # (auto) 0 uL; Basophils % (auto) 0.4 % (0.0-2.0); Eosinophils # (auto) 0.1 uL; Eosinophils % (auto) 1.8 % (0.0-7.0); Hematocrit 44.4 % (41.0-53.0); Hemoglobin 15.1 g/dL (13.5-17.5); Lymphocytes % (auto) 15.2 % (10.0-50.0); Mean Corpuscular Hemoglobin 31.4 pg (28.0-32.0); Mean Corpuscular Volume 92.4 fL (80.0-100.0); Monocytes # (auto) 0.6 uL; Monocytes % (auto) 8.3 % (0.0-12.0); Neutrophils # (auto) 5.1 uL; Neutrophils % (auto) 74.3 % (37.0-80.0); Platelet Count (auto) 185 10^3/uL (140-450); Red Blood Cells 4.81 10^6/uL (4.5-5.90); Red Cell Distribution Width 16.3 % (11.8-14.3); White Blood Cell 6.8 10^3/uL (4.4-10.8)
[2019-04-28 06:36] LABS: Potassium 3.8 mmol/L (3.5-5.1)
[2019-04-28 06:42] LABS: BUN/Creatinine Ratio 22.1; Calcium 8.4 mg/dL (8.5-10.1); Magnesium 1.8 mg/dL (1.6-2.6)
--- NOTE | 2019-04-28 07:09 | NUR ---
Closing note Will endorse care to day shift nurse. Patient currently sleeping with no reports of SOB. Call light within reach.
--- NOTE | 2019-04-28 07:41 | NUR ---
[employer] vest packet faxed to [employer] yesterday and rep was in yesterday to facilitate process
[2019-04-28 07:50] VITALS: BP 110/79
--- NOTE | 2019-04-28 08:00 | NUR ---
Opening Shift Note Assumed care of patient, awake and alert. Patient A&Ox4. Patient on the monitor. Patient on 3L NC saturation at 99%. IV right hand 20G saline locked, patent, clean, dry, and intact. No S/S of distress/SOB or pain. Instructed on POC and to call for assist. Bed locked and in the lowest position, side rails up x2, call light with in reach. Will continue to monitor.
--- NOTE | 2019-04-28 08:30 | NUR ---
Patient sitting up in bed eating breakfast independently. Will continue to monitor.
[2019-04-28] MEDS ORDERED: CLOPIDOGREL BISULFATE 75 MG TAB PO SCH (10:00)
--- NOTE | 2019-04-28 10:00 | NUR ---
Medication dosages, usages, and side effects explained to patient. Patient verbalized understanding. Will continue to monitor.
[2019-04-28] MEDS: LISINOPRIL 5 MG TAB PO SCH (10:08)
[2019-04-28] MEDS: SPIRONOLACTONE 25 MG TAB PO SCH (10:08)
[2019-04-28] MEDS: PANTOPRAZOLE 40 MG TAB PO SCH (10:09)
[2019-04-28] MEDS: FUROSEMIDE 20 MG/2 ML VIAL IV SCH (10:09)
[2019-04-28] MEDS: ENOXAPARIN SOD 40 MG/0.4 ML SYRINGE SC SCH (10:09)
[2019-04-28 11:45] VITALS: BP 115/65
--- NOTE | 2019-04-28 12:30 | NUR ---
Patient sitting up in bed eating lunch independently. Will continue to monitor.
--- NOTE | 2019-04-28 14:03 | NUR ---
order for zoll vest faxed to [facility] and [employer]
--- NOTE | 2019-04-28 15:30 | NUR ---
[employer] rep at bedside fitting patient with Life Vest.
--- NOTE | 2019-04-28 15:40 | NUR ---
Assessment Pt is a 53 yr old alert and oriented male. Pt lives with friends and stated he is ambulatory and not able to take care of himself very well. Pt's son, Juana, is his emergency contact at [phone]. ANKUSH educated pt about [facility] and gave intake referral # to call. 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 ANKUSH referred pt to and [facility] for assistance and gave him resource information for phone number and location. No AD and can't remember pt's primary Dr. Pt is unsure of who will transport him home and may need a taxi voucher. Pt would benefit from a HH safety eval upon d/c. Further needs will be assessed closer to d/c. Addendum: 04/28/19 at 1558 by ZANDER FORRESTER Amended: Links added.
[2019-04-28 16:00] VITALS: BP 102/79
--- NOTE | 2019-04-28 16:15 | NUR ---
Dr. Felix at bedside. Dr. Felix spoke with Dr. Espinoza Patient ok to discharge home. Discharge orders written. Prescriptions in the chart. Will continue to monitor.
--- NOTE | 2019-04-28 18:35 | NUR ---
Patient discharged home. Education given to the patient. Discharge instructions and prescription given to patient. IV right hand 20G removed, catheter intact upon removal, pressure dressing placed, instructed to remove in 15-20 mins. Patient discharged with all belongings, Patient refused to wear life vest upon discharge, stated he will wear it after he showers tonight. Patient taken out via wheel chair by Leno LYNN. No S/S of pain/SOB or distress upon discharge. Instructed to return if worse.
== END 2019-04-28 18:45 | disposition home or self-care (01) | DRG 175 ==
LOC: ER 15:51 → TELE 15:52 → TELE-CENTR 20:35 → DOU IN ICU 04-26 11:55
PROVIDERS: ADMIT Nurse Practitioner Acute Care; ATTEND Internal Medicine
PROC: 027034Z Dilation of Coronary Artery, One Artery with Drug-eluting Intraluminal Device, Percutaneous Approach (ICD-10-PCS; principal; 2019-04-27)
PROC: B211YZZ Fluoroscopy of Multiple Coronary Arteries using Other Contrast (ICD-10-PCS; 2019-04-27)
DX: I13.0 Hypertensive heart and chronic kidney disease with heart failure and stage 1 through stage 4 chronic kidney disease, or unspecified chronic kidney disease (principal); E11.22 Type 2 diabetes mellitus with diabetic chronic kidney disease; E11.51 Type 2 diabetes mellitus with diabetic peripheral angiopathy without gangrene; I42.9 Cardiomyopathy, unspecified; I48.0 Paroxysmal atrial fibrillation; R55 Syncope and collapse; E78.5 Hyperlipidemia, unspecified; I25.10 Atherosclerotic heart disease of native coronary artery without angina pectoris; I50.43 Acute on chronic combined systolic (congestive) and diastolic (congestive) heart failure; R00.1 Bradycardia, unspecified; N18.3 Chronic kidney disease, stage 3 (moderate); K21.9 Gastro-esophageal reflux disease without esophagitis; F15.90 Other stimulant use, unspecified, uncomplicated; F17.210 Nicotine dependence, cigarettes, uncomplicated; Z79.4 Long term (current) use of insulin; Z79.899 Other long term (current) drug therapy; Z82.49 Family history of ischemic heart disease and other diseases of the circulatory system; Z83.3 Family history of diabetes mellitus
CPT/HCPCS: 36415; 70450; 71045; 80048; 80053; 80061; 80307; 81001; 82962; 83036; 83735; 83880; 84484; 85025; 85610; 85730; 86141; 92928; 93005; 93454; 93886; 93926; 93970; G0378; J1815; J2250; Q9967

== ENCOUNTER 2019-09-01 16:55 | Inpatient (IN) | payer MEDICAID ==
[~2019-09-01] VITALS: Ht 175.3 cm; Wt 90.3 kg
[~2019-09-01 16:55] MED LIST changes: +AMIO200T33 PO; +ASPI-231 PO; +CARV3.1240 PO; +CLIN-203 PO; +CLOP75TA41 PO; -FURO1TAB31 PO; +FURO1TAB33 PO; +HYDR-4833 PO; -LISI-275 PO; +LORA0.5T20 PO; +METO25TA93 PO; +MUPI2OIN2 EACHNOSTRI; +POTA10TA51 PO
[2019-09-01] MEDS ORDERED: DOCUSATE SOD 100 MG CAP PO PRN (17:30)
[2019-09-01] MEDS ORDERED: LORazepam 0.5 MG TAB PO PRN (17:30)
[2019-09-01] MEDS ORDERED: FUROSEMIDE 40 MG/4 ML VIAL IV ONE (17:30)
[2019-09-01] MEDS ORDERED: METOCLOPRAMIDE HCL 5MG/ml INJ 2ml VIAL IV PRN (17:30)
[2019-09-01] MEDS ORDERED: ALUM & MAG HYDROX-SIMETH LIQ(MAALOX) 30 ML PO PRN (17:30)
[2019-09-01] MEDS ORDERED: DEXTROSE (50%) 50ML SYRG IV PRN (17:30)
[2019-09-01] MEDS ORDERED: ALUM & MAG HYDROX-SIMETH LIQ(MAALOX) 30 ML PO ONE (17:30)
[2019-09-01] MEDS ORDERED: NITROGLYCERIN 0.4 MG SL TAB SL PRN ×3 (17:30)
[2019-09-01] MEDS ORDERED: MORPHINE SULFATE 4 MG/ML SYR/VIAL IV PRN (17:30)
[2019-09-01] MEDS ORDERED: InsuLIN REG 1unit/0.01ml Soln (100units/ml) IV ONE (17:30)
[2019-09-01] MEDS ORDERED: MORPHINE SULF INJ 2 MG/ML SYRINGE 1ML IV PRN ×2 (17:30)
[2019-09-01] MEDS ORDERED: FUROSEMIDE 100 MG/10ML VIAL IV ONE (17:45)
[2019-09-01] MEDS: FUROSEMIDE 100 MG/10ML VIAL IV SCH (18:00)
[2019-09-01 18:06] LABS: Basophils % (auto) 0.5 % (0.0-2.0); Eosinophils % (auto) 0.4 % (0.0-7.0)
[2019-09-01 18:13] LABS: Albumin 2.5 g/dL (3.4-5.0); BUN/Creatinine Ratio 24.4; Calcium 7.6 mg/dL (8.5-10.1); Potassium 4.3 mmol/L (3.5-5.1)
[2019-09-01] MEDS ORDERED: CLINDAMYCIN 300MG IV 50 ML IV ONE (18:15)
[2019-09-01 18:16] LABS: Basophils # (auto) 0 10 ^3/uL (0-0.2); Eosinophils # (auto) 0 10 ^3/uL (0-0.8); Hematocrit 43.4 % (41.0-53.0); Lymphocytes # (auto) 0.3 10 ^3/uL (0.4-5.4); Lymphocytes % (auto) 4.3 % (10.0-50.0); Mean Corpuscular Hemoglobin 30.4 pg (28.0-32.0); Mean Corpuscular Hgb Conc. 32.2 g/dL (32.0-36.0); Mean Corpuscular Volume 94.2 fL (80.0-100.0); Monocytes # (auto) 0.3 10 ^3/uL (0-1.3); Neutrophils # (auto) 6.2 10 ^3/uL (1.6-8.6); Neutrophils % (auto) 89.8 % (37.0-80.0); Nucleated Red Blood Cells % 0.2 %; Platelet Count (auto) 207 10^3/uL (140-450); Red Blood Cells 4.61 10^6/uL (4.5-5.90)
[2019-09-01 18:18] LABS: Total Protein 7.7 g/dL (6.4-8.2)
[2019-09-01 18:23] LABS: Red Cell Distribution Width 24.9 % (11.8-14.3)
[2019-09-01] MEDS ORDERED: METOPROLOL SUCCINATE XL 50 MG TAB PO ONE (19:45)
[2019-09-01 20:18] VITALS: BP 105/55
--- NOTE | 2019-09-01 20:18 | NUR ---
pt arrived to 287b via hospital bed. pt placed on 3Lns. respirations are labored, spo2 of 95%. pt has bilateral dressings to lower extremities. T98.8 HR62 RR22 BP105/55. pt is A&Ox4.
[2019-09-01 22:00] VITALS: BP 105/55
[2019-09-01] MEDS: ACCU-CHEK COMFORT CURVE STRIP VI SCH (22:26)
[2019-09-01] MEDS: INSULIN LANTUS (GLARGINE) 1 /0.01ml (100units/ml) SC SCH (22:28)
[2019-09-01] MEDS: InsuLIN REG 1unit/0.01ml Soln (100units/ml) SC SCH (22:40)
[2019-09-01] MEDS: ATORVASTATIN 20 MG TAB PO SCH (22:50)
[2019-09-01] MEDS: CLINDAMYCIN 300MG IV 50 ML IV SCH (22:50)
[2019-09-01] MEDS: GABAPENTIN 300 MG CAP PO SCH (22:52)
[2019-09-01] MEDS: METOPROLOL TARTRATE 25 MG TAB PO SCH (22:52)
--- NOTE | 2019-09-02 01:00 | NUR ---
Respiratory note: Called to bedside pt RR in 30s. BS are diminished/ clear t/o. Pox 92-96% on 3lpm NC. Will obtain ABG. HUDSON Sharma at bedside aware of poc.
--- NOTE | 2019-09-02 01:07 | NUR ---
Respiratory note: ABG OBTAINED FROM RRA ON FIRST ATTEMPT. NO HIGH TEMP. PT ON 3LPM NC AT TIME OF ABG.
--- NOTE | 2019-09-02 01:20 | NUR ---
Respiratory note: ABG RESULTS REPORTED TO LEORA. ALSO NOTIFIED OF PTS LOW URINE OUTPUT WELL BLOOD IN URINE. NO NEW ORDERS GIVEN FOR ME CORE DROPPER AT THIS TIME. HUDSON WINSTON COMMUNICATED. WILL CONTINUE TO MONITOR PT NEEDED.
[2019-09-02 05:00] VITALS: BP 140/58
[2019-09-02] MEDS: CLINDAMYCIN 300MG IV 50 ML IV SCH ×2 (06:01→15:26)
[2019-09-02] MEDS: FUROSEMIDE 100 MG/10ML VIAL IV SCH ×2 (06:02→17:22)
[2019-09-02] MEDS: GABAPENTIN 300 MG CAP PO SCH ×3 (06:02→22:21)
[2019-09-02 06:10] LABS: Basophils # (auto) 0 10 ^3/uL (0-0.2); Basophils % (auto) 0.3 % (0.0-2.0); Eosinophils # (auto) 0 10 ^3/uL (0-0.8); Eosinophils % (auto) 0.1 % (0.0-7.0); Hematocrit 42.1 % (41.0-53.0); Hemoglobin 13.7 g/dL (13.5-17.5); Lymphocytes # (auto) 0.8 10 ^3/uL (0.4-5.4); Lymphocytes % (auto) 8.7 % (10.0-50.0); Mean Corpuscular Hemoglobin 30.4 pg (28.0-32.0); Mean Corpuscular Hgb Conc. 32.6 g/dL (32.0-36.0); Mean Corpuscular Volume 93.1 fL (80.0-100.0); Neutrophils # (auto) 6.8 10 ^3/uL (1.6-8.6); Neutrophils % (auto) 78.9 % (37.0-80.0); Nucleated Red Blood Cells % 0.6 %; Platelet Count (auto) 227 10^3/uL (140-450); Red Blood Cells 4.52 10^6/uL (4.5-5.90); White Blood Cell 8.7 10^3/uL (4.4-10.8)
[2019-09-02 06:23] LABS: INR 1.93 (0.9-1.15); Partial Thromboplastin Time 35.9 sec (23.64-32.05)
[2019-09-02] MEDS: ACCU-CHEK COMFORT CURVE STRIP VI SCH ×4 (06:24→22:54)
[2019-09-02 06:25] LABS: Red Cell Distribution Width 24.4 % (11.8-14.3)
[2019-09-02] MEDS: InsuLIN REG 1unit/0.01ml Soln (100units/ml) SC SCH ×4 (06:25→22:00)
[2019-09-02 06:33] LABS: Chloride 89 mmol/L (98-107); Potassium 5.1 mmol/L (3.5-5.1); Sodium 121 mmol/L (136-145)
[2019-09-02] MEDS: INSULIN LISPRO (HUMAN) 100 UNITS/ML ML SC SCH ×3 (06:35→17:24)
[2019-09-02 06:44] LABS: Alanine Aminotransferase 44 U/L (16-61); Albumin 2.6 g/dL (3.4-5.0); Alkaline Phosphatase 158 U/L (45-117); Anion Gap 13 (5-15); Aspartate Aminotransferase 52 U/L (15-37); BUN/Creatinine Ratio 20.5; Bilirubin, Total 7.5 mg/dL (0.2-1.0); Blood Urea Nitrogen 46 mg/dL (7-18); Calcium 7.8 mg/dL (8.5-10.1); Carbon Dioxide 19 mmol/L (21-32); Cholesterol < 50 mg/dL (< 200); GFR African American 39 mL/min; GFR Non-African American 33 mL/min; Glucose 164 mg/dL (74-106); HDL Cholesterol 10 mg/dL (40-59); LDL Cholesterol 37 mg/dL (< 100); Magnesium 2.5 mg/dL (1.6-2.6); Phosphorus 3.3 mg/dL (2.5-4.90); Total Protein 7.6 g/dL (6.4-8.2); Triglycerides 59 mg/dL (< 150)
--- NOTE | 2019-09-02 07:04 | NUR ---
closing note pt resting in left lateral position with eyes closed. respirations are even on 3Lnc. no s/s of pain or discomfort at this time. bed in low locked position, call light within reach.
--- NOTE | 2019-09-02 07:30 | NUR ---
Opening Shift Note Assuming care of patient at this time. Patient is resting in bed. Patient shows no signs or symptoms of distress. Bed is locked and lowered with side rails up x2. Instructed patient on the plan of care for today and to call for assistance as needed. Call light within reach. Will continue to round hourly and as needed.
[2019-09-02 09:00] VITALS: BP 103/70
[2019-09-02] MEDS: METOPROLOL TARTRATE 25 MG TAB PO SCH ×2 (10:00→22:00)
[2019-09-02] MEDS ORDERED: LISINOPRIL 5 MG TAB PO SCH (10:00)
[2019-09-02] MEDS: CLOPIDOGREL BISULFATE 75 MG TAB PO SCH (10:09)
[2019-09-02] MEDS: DOCUSATE SOD 100 MG CAP PO SCH (10:09)
[2019-09-02] MEDS: AMIODARONE HCL 200 MG TAB PO SCH (10:10)
[2019-09-02] MEDS: ASPirin 81 mg TAB PO SCH (10:10)
[2019-09-02] MEDS: SPIRONOLACTONE 25 MG TAB PO SCH (10:11)
[2019-09-02] MEDS: ENOXAPARIN SOD 40 MG/0.4 ML SYRINGE SC SCH (10:12)
[2019-09-02 13:00] VITALS: BP 93/69
--- NOTE | 2019-09-02 13:00 | NUR ---
Re: Message to Dr. Aguayo Left a message for Dr. Aguayo at this time regarding patient's positive blood culture. Awaiting callback.
--- NOTE | 2019-09-02 14:30 | NUR ---
PT REFUSED P.T. TODAY.
--- NOTE | 2019-09-02 15:15 | NUR ---
at bedside Dr. Aguayo at bedside discussing plan of care with patient and this RN. Patient will need pace placement.
[2019-09-02] MEDS ORDERED: LIDOCAINE 2% JELLY 11ml (GLYDO) UR ONE (15:45)
--- NOTE | 2019-09-02 16:00 | NUR ---
Pace catheter insertion Patient assessed and determined to be in need of pace catheter. Order obtained from Dr. Aguayo. Patient educated on catheter and reason for insertion. All questions answered. Pace catheter 16 gauge Mal[place] inserted with clean sterile technique. Patient tolerated well.
[2019-09-02] MEDS ORDERED: METOCLOPRAMIDE HCL 5MG/ml INJ 2ml VIAL IV PRN ×2 (16:15→17:30)
[2019-09-02 16:41] VITALS: BP 95/60
[2019-09-02] MEDS ORDERED: cefTRIAXone 1GM/50ML D5W 50 ML IV ONE ×2 (17:00→20:00)
[2019-09-02] MEDS: LINEZOLID 600MG/300ML 300 ML IV SCH (17:23)
[2019-09-02 17:42] LABS: Urine Bacteria MOD /hpf (None Seen); Urine Blood 3+ /uL (Negative); Urine Hyaline Cast MOD /lpf (0 - 2); Urine Mucus FEW (None Seen); Urine Specific Gravity 1.016 (1.001-1.035); Urine WBC 211 /hpf (0 - 3); Urine WBC Clumps PRESENT /hpf (None Seen)
[2019-09-02] MEDS ORDERED: VANCOMYCIN 1GM/250ML 250 ML IV SCH (18:00)
[2019-09-02 18:09] LABS: Amphetamine Screen, Urine POSITIVE (NEGATIVE); Barbiturate Scree,Urine NEGATIVE (NEGATIVE); Benzodiazephine Screen, Urine NEGATIVE (NEGATIVE); Cannabinoid Screen, Urine NEGATIVE (NEGATIVE); Cocaine Screen, Urine NEGATIVE (NEGATIVE); Opiate Scree,Urine POSITIVE (NEGATIVE); Phencyclidine Screen, Urine NEGATIVE (NEGATIVE)
--- NOTE | 2019-09-02 18:44 | NUR ---
WOUND CARE NOTE: PATIENT RECENTLY SEEN BY DR. BUCHANAN, WHO APPLIED DRESSINGS AT BEDSIDE. DR. BUCHANAN HAS ORDERED FOR Q 3 DAY DRESSING CHANGES TO BLE WOUNDS. NEXT DRESSING CHANGE DUE ON SEPTEMBER 04. SKIN/WOUND CARE PLAN IMPLEMENTED. WILL DEFER ALL WOUND CARE RECOMMENDATIONS TO DR. BUCHANAN AT THIS POINT. NO WOUND CARE MONITORING NEEDED AT THIS TIME. Addendum: 09/02/19 at 1859 by Yu Perla RN Amended: Links added.
--- NOTE | 2019-09-02 19:23 | NUR ---
Closing Shift Note Patient resting in bed. No distress noted. Report given. Will endorse care to the curam developer RN.
--- NOTE | 2019-09-02 19:25 | NUR ---
opening note pt currently eating dinner. respirations are even yet labored on 3Lnc. pt A&03. POC discussed. bed in low locked position, call light within reach.
[2019-09-02 21:10] VITALS: BP 87/63
[2019-09-02] MEDS: ATORVASTATIN 20 MG TAB PO SCH (22:21)
--- NOTE | 2019-09-02 22:49 | NUR ---
pain pt c/o of BLE pain, rating 6/10. will medicate appropriately.
[2019-09-02] MEDS: HYDROcodone-ACET 5/325MG TAB PO PRN (22:56)
[2019-09-02] MEDS: INSULIN LANTUS (GLARGINE) 1 /0.01ml (100units/ml) SC SCH (22:57)
[2019-09-02 23:01] VITALS: BP 101/58
[2019-09-03] MEDS: LINEZOLID 600MG/300ML 300 ML IV SCH ×2 (04:21→18:35)
[2019-09-03] MEDS: GABAPENTIN 300 MG CAP PO SCH ×3 (05:19→22:31)
[2019-09-03] MEDS: FUROSEMIDE 100 MG/10ML VIAL IV SCH (05:19)
[2019-09-03 05:52] VITALS: BP 81/46
[2019-09-03 06:03] LABS: INR 1.85 (0.9-1.15); Partial Thromboplastin Time 42.6 sec (23.64-32.05)
[2019-09-03 06:11] LABS: BUN/Creatinine Ratio 26.8; Calcium 7.2 mg/dL (8.5-10.1); Potassium 4.3 mmol/L (3.5-5.1)
[2019-09-03] MEDS: INSULIN LISPRO (HUMAN) 100 UNITS/ML ML SC SCH ×3 (06:28→18:35)
[2019-09-03] MEDS: ACCU-CHEK COMFORT CURVE STRIP VI SCH ×4 (06:29→22:31)
[2019-09-03] MEDS: InsuLIN REG 1unit/0.01ml Soln (100units/ml) SC SCH ×4 (06:29→22:37)
--- NOTE | 2019-09-03 07:08 | NUR ---
closing note pt resting in semi fowlers position with HOB at 30 degrees. pt has difficulty breathing laying flat. pts respirations are labored on 3lnc. Bed in low locked position call light within reach. Endorsed care to day shift HUDSON Mirza.
[2019-09-03 09:00] VITALS: BP 85/54
[2019-09-03] MEDS: METOPROLOL TARTRATE 25 MG TAB PO SCH ×2 (10:00→22:31)
[2019-09-03] MEDS: DOCUSATE SOD 100 MG CAP PO SCH (10:09)
[2019-09-03] MEDS: SPIRONOLACTONE 25 MG TAB PO SCH (10:09)
[2019-09-03] MEDS: CLOPIDOGREL BISULFATE 75 MG TAB PO SCH (10:09)
[2019-09-03] MEDS: AMIODARONE HCL 200 MG TAB PO SCH (10:10)
[2019-09-03] MEDS: HYDROcodone-ACET 5/325MG TAB PO PRN ×2 (10:10→21:14)
[2019-09-03] MEDS: ASPirin 81 mg TAB PO SCH (10:11)
[2019-09-03] MEDS: cefTRIAXone 1GM/50ML D5W 50 ML IV SCH (10:11)
[2019-09-03] MEDS: ENOXAPARIN SOD 40 MG/0.4 ML SYRINGE SC SCH (10:16)
[2019-09-03] MEDS ORDERED: ALBUMIN 25% 100 ML IV SCH (10:45)
[2019-09-03 13:00] VITALS: BP 94/55
--- NOTE | 2019-09-03 14:30 | NUR ---
PT REFUSED P.T. TODAY.
--- NOTE | 2019-09-03 15:24 | NUR ---
Nutrition Consult/assessment Notes please see attached link for complete assessment [employer] needs BW 90 [id number] kcals (23-25 kcal/kgBW), Est Protein needs: 72-90 gms/day (0.8-1.0 gm/kgBW r/t elev RFT CKD). Will continue to monitor and reassess prn. Addendum: 09/03/19 at [address] Amended: Links added.
--- NOTE | 2019-09-03 16:16 | NUR ---
Assessment Patient is a 53-year-old male who is alert and oriented. Prior to admission patient lived home with family and needed assistance. Patient informed me he has a fww for home use. Informed patient he has a social service consult for home health for wound care. Patient will return home to his prior living arrangements post discharge and family will transport patient home. Informed patient he has a right to participate in all discharge planning. Patient verbalized understanding and agreed to discharge plan. Faxed clinical information to [facility] and [facility] and service to start within 24-48hrs upon d/c day. Obtain authorization for [employer] [id number]. Addendum: 09/03/19 at 1617 by PRADEEP CARTER Amended: Links added.
[2019-09-03 17:00] VITALS: BP 91/62
--- NOTE | 2019-09-03 20:00 | NUR ---
Closing Shift Note Patient resting in bed. No distress noted. Report given. Will endorse care to the cook night RN.
--- NOTE | 2019-09-03 20:00 | NUR ---
RECEIVED PATIENT FROM DAY SHIFT RN. PATIENT RESTING IN BED. NO S/S OF DISTRESS NOTED. C/O PAIN @ 01/06. WILL COME BACK FOR PAIN MEDICATION LATER. HAN CATH IN PLACE DRAINING GRAVITY. GENERALIZED EDEMA NOTED. DRESSING ON BOTH LEGS C/D/I. CAPILLARY REFILL WITHIN NORMAL SECONDS. POC INSTRUCTED AND ENCOURAGED PATIENT TO CALL FOR RESIN MAKER IF NEEDED. BED IN LOWEST POSITION WITH SIDE RAILS UP X 2. CALL WILSON WITHIN REACH. ALARM ON. CONTINUE TO MONITOR FOR CHANGES Q1H AND PRN.
[2019-09-03] MEDS: ALBUMIN 25% 100 ML IV SCH (21:14)
--- NOTE | 2019-09-03 21:15 | NUR ---
MEDIATED PATIENT FOR PAIN @ 9/10, PATIENT PREFERRED [facility]CO AT THIS TIME. CONTINUE TO MONITOR.
[2019-09-03 21:25] VITALS: BP 111/70
--- NOTE | 2019-09-03 22:15 | NUR ---
REASSESSED PAIN @ 09/05. CONTINUE TO MONITOR.
[2019-09-03] MEDS: ATORVASTATIN 20 MG TAB PO SCH (22:30)
--- NOTE | 2019-09-03 22:35 | NUR ---
ACCU-CHECK, BS 86. NO COVERAGE. CONTINUE TO MONITOR.
[2019-09-03] MEDS: INSULIN LANTUS (GLARGINE) 1 /0.01ml (100units/ml) SC SCH (22:37)
--- NOTE | 2019-09-04 03:23 | NUR ---
PATIENT SLEEPING. NO S/S OF DISTRESS NOTED. CONTINUE CARE.
[2019-09-04] MEDS: ALBUMIN 25% 100 ML IV SCH (04:45)
[2019-09-04] MEDS: LINEZOLID 600MG/300ML 300 ML IV SCH ×2 (05:33→17:00)
[2019-09-04 05:46] VITALS: BP 123/81
[2019-09-04] MEDS: GABAPENTIN 300 MG CAP PO SCH ×2 (06:14→16:57)
[2019-09-04] MEDS: INSULIN LISPRO (HUMAN) 100 UNITS/ML ML SC SCH ×3 (06:23→17:00)
[2019-09-04] MEDS: ACCU-CHEK COMFORT CURVE STRIP VI SCH ×3 (06:23→17:00)
[2019-09-04] MEDS: InsuLIN REG 1unit/0.01ml Soln (100units/ml) SC SCH ×3 (06:23→17:00)
--- NOTE | 2019-09-04 06:24 | NUR ---
ACCU-CHECK, BS 96. NO COVERAGE. CONTINUE TO MONITOR.
[2019-09-04 08:07] LABS: Potassium 3.9 mmol/L (3.5-5.1)
[2019-09-04 08:11] LABS: BUN/Creatinine Ratio 33.6; Calcium 7.6 mg/dL (8.5-10.1)
[2019-09-04 09:00] VITALS: BP 115/86
[2019-09-04] MEDS: METOPROLOL TARTRATE 25 MG TAB PO SCH (09:46)
--- NOTE | 2019-09-04 10:00 | NUR ---
NOTIFIED DR LEA THAT PATIENT HAD SOME BLEEDING FROM LOVENOX SITE. BLEEDING STOPPED AND DRESSING APPLIED.
[2019-09-04] MEDS: ASPirin 81 mg TAB PO SCH (10:44)
[2019-09-04] MEDS: cefTRIAXone 1GM/50ML D5W 50 ML IV SCH (10:44)
[2019-09-04] MEDS: DOCUSATE SOD 100 MG CAP PO SCH (10:44)
[2019-09-04] MEDS: CLOPIDOGREL BISULFATE 75 MG TAB PO SCH (10:44)
[2019-09-04] MEDS: ENOXAPARIN SOD 40 MG/0.4 ML SYRINGE SC SCH (10:44)
[2019-09-04] MEDS: AMIODARONE HCL 200 MG TAB PO SCH (10:45)
[2019-09-04] MEDS ORDERED: FUROSEMIDE 20 MG/2 ML VIAL IV ONE (11:00)
[2019-09-04] MEDS ORDERED: MUPI2OIN2 EACHNOSTRI (11:07)
[2019-09-04] MEDS ORDERED: HYDR-4833 PO (11:07)
[2019-09-04] MEDS ORDERED: ASPI-231 PO (11:07)
[2019-09-04] MEDS ORDERED: FURO1TAB33 PO (11:07)
[2019-09-04] MEDS ORDERED: SPIR25TA88 PO (11:07)
[2019-09-04] MEDS ORDERED: LEVO-28 PO (11:07)
[2019-09-04] MEDS ORDERED: CARV3.1240 PO (11:07)
[2019-09-04 13:00] VITALS: BP 119/92
--- NOTE | 2019-09-04 14:30 | NUR ---
Attempted PT eval. Pt initially refused stating he will not walk until his legs are wrapped. I returned to room and informed the patient that nursing states that his legs will be wrapped immediately prior to discharge. Pt states he still cannot walk since he has a pace in place. I explained to patient that we could ambulate with the catheter but he states "not right now." Will attempt later.
--- NOTE | 2019-09-04 16:05 | NUR ---
WOUND CARE NOTE: New wound care request to apply wound dressing to BLE wounds after arterial US. Patient is 53 years old male with admitting diagnosis of Acute Exacerbation on Systolic Heart Failure. Patient is resting in bed in Rm. 287B. Patient is awake, alert and oriented. He's in no stated pain at this time. He' sable to assist inturninga nd repositioning. His Jovanny score is 16. Patient's nurse, HUDSON Munoz reported that patient has arterial US already and has Discharge order. Wound care in to assist bedside nurse for BLE dressing change and for DC photos of wounds. Patient's BLE cleansed with mild soap and water,patted dry. Patient's BLE has hyperpigmented skin. RLE has multi intact scars, scabs, no open wound noted. LLE has multi open full thickness ulceration to L dorsal foot, L heel. Lt anterolateral down to posterior lower leg. Hotbed Operator is on board. Applied Xeroform dressing to multi open ulceration to LLE, applied Unna boots from base of toes up to lower knee, wrap legs with Kerlix and secured with tape. No compression applied per MD order. Patient tolerated well. Patient has Discharge home order and to follow up with Dr. Byrne/Dr. Montalvo as out patient. Addendum: 09/04/19 at 1648 by Felisa Horton RN Amended: Links added.
[2019-09-04 16:35] VITALS: BP 115/86
--- NOTE | 2019-09-04 18:01 | NUR ---
PATIENT SAID HIS RIDE IS NOT HOME BUT THEY WILL BE HERE LATER TO PICK HIM UP.
--- NOTE | 2019-09-04 18:30 | NUR ---
PAGED DR LEA PAGED BECAUSE LOVENOX INJECTION SITE STILL BLEEDING.
--- NOTE | 2019-09-04 19:02 | NUR ---
BLEEDING STOPPED [place] CHARGE NURSE APPLIED PRESSURE DRESSING. REPORT GIVEN TO TOYA QUESADA
--- NOTE | 2019-09-04 19:40 | NUR ---
CHECKED PATIENT WITH DAY SHIFT RN CLYDE Babb, NO S/S OF BLEED AT THIS TIME. PATIENT WILL CALL FRIEND TO PICK HIM UP. CONTINUE TO MONITOR.
[2019-09-04] MEDS: HYDROcodone-ACET 5/325MG TAB PO PRN (19:43)
--- NOTE | 2019-09-04 19:53 | NUR ---
[facility] SWAB COLLECTED AND SENT FOR D/C
--- NOTE | 2019-09-04 20:20 | NUR ---
Discharge instructions PREPARED BY DAY SHIFT RN AND given as ordered. Encourage to follow up with PMD as instructed. All questions and concerns addressed. Patient verbalized understanding. Medication reconciliation form completed and copy given to patient. IV removed with catheter intact, pressure dressing applied, pace catheter removed. Telemetry unit returned to ICU. Patient taken to vehicle via wheelchair with all personal belongings, accompanied by staff. No distress noted at time of departure.
--- NOTE | 2019-09-04 21:51 | NUR ---
PATIENT'S FAMILY CALLED, AND C/O PATIENT'S ABD SIDE IS BLEEDING. EXPLAINED TO FAMILY THAT THERE IS NO BLEED AT THE MOMENT WHEN PATIENT DISCHARGED. IF IT IS BLEEDING NOW, PROVIDE PRESSURE FOR 5 TO 10 MINUTES. IF CANNOT STOP, GO TO ER. PATIENT'S FAMILY REQUESTED TO TALK TO CHARGE NURSE, BUT PHONE LOST DURING TRANSFERRING. TRIED TO CALL PATIENT @ [phone] RECORDED IN THE CHART, NOT AVAILABLE. CALLED NEXT OF KIN RECORDED IN THE [employer] @ [phone], WRONG NUMBER. CHARGE NURSE GLENROY CHAMBERLAIN, WAITING FOR PATIENT'S FAMILY TO CALL BACK.
== END 2019-09-04 20:20 | disposition home health service (06) | DRG 194 ==
LOC: EDBD 16:55 → ER 16:55 → TELE 16:56 → TELE-WESTW 20:19
PROVIDERS: ADMIT Hospitalist; ATTEND Hospitalist
DX: I13.0 Hypertensive heart and chronic kidney disease with heart failure and stage 1 through stage 4 chronic kidney disease, or unspecified chronic kidney disease (principal); N17.0 Acute kidney failure with tubular necrosis; E44.0 Moderate protein-calorie malnutrition; E11.22 Type 2 diabetes mellitus with diabetic chronic kidney disease; E87.2 Acidosis; L03.115 Cellulitis of right lower limb; E87.1 Hypo-osmolality and hyponatremia; E11.51 Type 2 diabetes mellitus with diabetic peripheral angiopathy without gangrene; I48.91 Unspecified atrial fibrillation; E11.65 Type 2 diabetes mellitus with hyperglycemia; I50.43 Acute on chronic combined systolic (congestive) and diastolic (congestive) heart failure; L03.116 Cellulitis of left lower limb; R60.9 Edema, unspecified; L97.929 Non-pressure chronic ulcer of unspecified part of left lower leg with unspecified severity; N18.9 Chronic kidney disease, unspecified; F15.10 Other stimulant abuse, uncomplicated; F17.210 Nicotine dependence, cigarettes, uncomplicated; I25.10 Atherosclerotic heart disease of native coronary artery without angina pectoris; F41.9 Anxiety disorder, unspecified; J44.9 Chronic obstructive pulmonary disease, unspecified; Z68.29 Body mass index [BMI] 29.0-29.9, adult; Z79.4 Long term (current) use of insulin; Z79.82 Long term (current) use of aspirin; Z82.49 Family history of ischemic heart disease and other diseases of the circulatory system; Z83.3 Family history of diabetes mellitus; Z79.899 Other long term (current) drug therapy
CPT/HCPCS: 36415; 36600; 71045; 80048; 80053; 80061; 80202; 80307; 81001; 82805; 82962; 83036; 83735; 83880; 84100; 84484; 85025; 85610; 85730; 87040; 87077; 87081; 87086; 87088; 87186; 93005; 93925; 93926; 93970; 96365; 96375; G0378; J0696; J1815; J3490; P9047

== ENCOUNTER 2019-09-04 22:59 | Emergency (ER) | payer MEDICAID ==
[~2019-09-04] VITALS: Ht 180.3 cm; Wt 90.7 kg
[~2019-09-04 22:59] MED LIST changes: +LEVO-28 PO
[2019-09-05 00:06] LABS: Basophils # (auto) 0 10 ^3/uL (0-0.2); Basophils % (auto) 0.6 % (0.0-2.0); Eosinophils # (auto) 0.1 10 ^3/uL (0-0.8); Hematocrit 42.5 % (41.0-53.0); Hemoglobin 13.8 g/dL (13.5-17.5); Lymphocytes # (auto) 0.3 10 ^3/uL (0.4-5.4); Lymphocytes % (auto) 5.5 % (10.0-50.0); Mean Corpuscular Hemoglobin 29.9 pg (28.0-32.0); Mean Corpuscular Hgb Conc. 32.3 g/dL (32.0-36.0); Mean Corpuscular Volume 92.6 fL (80.0-100.0); Monocytes # (auto) 0.4 10 ^3/uL (0-1.3); Monocytes % (auto) 7.4 % (0.0-12.0); Neutrophils # (auto) 4.6 10 ^3/uL (1.6-8.6); Neutrophils % (auto) 85.5 % (37.0-80.0); Nucleated Red Blood Cells % 0.1 %; Platelet Count (auto) 210 10^3/uL (140-450); Red Blood Cells 4.59 10^6/uL (4.5-5.90); White Blood Cell 5.3 10^3/uL (4.4-10.8)
[2019-09-05 00:16] LABS: Albumin 2.6 g/dL (3.4-5.0); Calcium 7.8 mg/dL (8.5-10.1); Potassium 4.3 mmol/L (3.5-5.1)
[2019-09-05 00:18] LABS: Bilirubin, Total 3.1 mg/dL (0.2-1.0); Total Protein 7.4 g/dL (6.4-8.2)
[2019-09-05 00:22] LABS: Red Cell Distribution Width 24.7 % (11.8-14.3)
[2019-09-05] MEDS ORDERED: SODIUM CHL 3% 500 ML IV ONE (02:15)
[2019-09-05 02:17] LABS: Urine Bacteria NONE SEEN /hpf (None Seen); Urine Blood 2+ /uL (Negative); Urine Specific Gravity 1.007 (1.001-1.035); Urine WBC 2 /hpf (0 - 3)
[2019-09-05 05:00] VITALS: BP 115/68
== END 2019-09-05 06:58 | disposition home or self-care (01) ==
LOC: ER 22:59
DX: S31.139A Puncture wound of abdominal wall without foreign body, unspecified quadrant without penetration into peritoneal cavity, initial encounter (principal); E11.65 Type 2 diabetes mellitus with hyperglycemia; E87.1 Hypo-osmolality and hyponatremia; I11.0 Hypertensive heart disease with heart failure; E11.22 Type 2 diabetes mellitus with diabetic chronic kidney disease; I13.0 Hypertensive heart and chronic kidney disease with heart failure and stage 1 through stage 4 chronic kidney disease, or unspecified chronic kidney disease; N18.9 Chronic kidney disease, unspecified; I50.89 Other heart failure; J44.9 Chronic obstructive pulmonary disease, unspecified; Z98.61 Coronary angioplasty status; F17.210 Nicotine dependence, cigarettes, uncomplicated; W22.8XXA Striking against or struck by other objects, initial encounter; Y93.89 Activity, other specified; Y92.89 Other specified places as the place of occurrence of the external cause; Y99.8 Other external cause status
CPT/HCPCS: 36415; 74176; 80053; 81001; 84484; 85025; 93005; 96360; 96361; 99285; J7040

== ENCOUNTER 2020-10-22 18:39 | Inpatient (IN) | payer MEDICAID ==
[~2020-10-22] VITALS: Ht 175.3 cm; Wt 91.9 kg
[~2020-10-22 18:39] MED LIST changes: -CLIN-203 PO; -CLOP75TA41 PO; +CLOP75TA70 PO; -METO25TA93 PO; -POTA10TA51 PO; +SPIR25TA PO; -SPIR25TA88 PO
[2020-10-22 21:19] LABS: Basophils # (auto) 0.1 10 ^3/uL (0-0.2); Basophils % (auto) 1.7 % (0.0-2.0); Eosinophils # (auto) 0.2 10 ^3/uL (0-0.8); Eosinophils % (auto) 2.4 % (0.0-7.0); Hematocrit 26.7 % (41.0-53.0); Hemoglobin 9.1 g/dL (13.5-17.5); Lymphocytes # (auto) 0.8 10 ^3/uL (0.4-5.4); Lymphocytes % (auto) 12.2 % (10.0-50.0); Mean Corpuscular Hgb Conc. 33.9 g/dL (32.0-36.0); Mean Corpuscular Volume 91.6 fL (80.0-100.0); Monocytes # (auto) 0.6 10 ^3/uL (0-1.3); Neutrophils # (auto) 5.2 10 ^3/uL (1.6-8.6); Neutrophils % (auto) 74.7 % (37.0-80.0); Nucleated Red Blood Cells % 0.1 %; Red Blood Cells 2.92 10^6/uL (4.5-5.90); White Blood Cell 6.9 10^3/uL (4.4-10.8)
[2020-10-22 21:22] LABS: Red Cell Distribution Width 20.8 % (11.8-14.3)
[2020-10-22 21:31] LABS: Albumin 2.2 g/dL (3.4-5.0); Magnesium 1.7 mg/dL (1.6-2.6)
[2020-10-22 21:32] LABS: Lactic Acid w/Reflex 2.6 mmol/L (0.4-2.0)
[2020-10-22 21:37] LABS: Bilirubin, Total 2.5 mg/dL (0.2-1.0); Total Protein 5.2 g/dL (6.4-8.2)
[2020-10-22 21:48] LABS: BUN/Creatinine Ratio 22.9; Potassium 2.1 mmol/L (3.5-5.1)
[2020-10-22] MEDS ORDERED: LORazepam 2MG/ML-1ML VIAL IV ONE (22:00)
[2020-10-22] MEDS ORDERED: CALCIUM GLUC 1,000mg/50ml-NS 50 ML IV ONE (22:00)
[2020-10-22] MEDS: POTASSIUM CHL 20MEQ/100ML 100 ML IV SCH (22:10)
[2020-10-22 23:03] LABS: Urine Bacteria NONE SEEN /hpf (None Seen); Urine Blood Negative /uL (Negative); Urine Specific Gravity 1.013 (1.001-1.035); Urine WBC 4 /hpf (0 - 3)
[2020-10-22 23:20] LABS: Alcohol, Urine < 3.0 mg/dL (0-10); Amphetamine Screen, Urine POSITIVE (NEGATIVE); Barbiturate Scree,Urine NEGATIVE (NEGATIVE); Benzodiazephine Screen, Urine NEGATIVE (NEGATIVE); Cocaine Screen, Urine NEGATIVE (NEGATIVE); Opiate Scree,Urine NEGATIVE (NEGATIVE); Phencyclidine Screen, Urine NEGATIVE (NEGATIVE)
[2020-10-22 23:28] LABS: Cannabinoid Screen, Urine POSITIVE (NEGATIVE)
[2020-10-22] MEDS ORDERED: VANCOMYCIN 1GM/250ML 250 ML IV ONE (23:45)
[2020-10-22] MEDS ORDERED: PIPERACILLIN-TAZOB 3.375GM 100 ML IV ONE (23:45)
[2020-10-23] MEDS: POTASSIUM CHL 20MEQ/100ML 100 ML IV SCH ×3 (00:37→12:12)
[2020-10-23] MEDS ORDERED: SODIUM CHLORIDE 0.9% 2,000 ML IV ONE (01:15)
[2020-10-23] MEDS ORDERED: VANCOMYCIN PER PHARMACY 0 MG IV SCH ×2 (02:15→06:00)
[2020-10-23] MEDS ORDERED: NITROGLYCERIN 0.4 MG SL TAB SL PRN (02:15)
[2020-10-23] MEDS ORDERED: MORPHINE SULF INJ 2 MG/ML SYRINGE 1ML IV PRN (02:15)
[2020-10-23] MEDS ORDERED: DEXTROSE (50%) 50ML SYRG IV PRN (02:15)
[2020-10-23] MEDS ORDERED: ONDANSETRON HCL 4 MG/2 ML VIAL IV PRN (02:15)
[2020-10-23 05:06] LABS: Magnesium 1.9 mg/dL (1.6-2.6)
[2020-10-23 05:30] LABS: Potassium 2.9 mmol/L (3.5-5.1)
[2020-10-23] MEDS ORDERED: POTASSIUM CHL 20MEQ/100ML 100 ML IV SCH ×2 (06:00→12:15)
[2020-10-23] MEDS ORDERED: LACTULOSE 20Gm/30ML SOLN PO SCH (06:00)
[2020-10-23 06:47] VITALS: BP 86/56
[2020-10-23] MEDS: PIPERACILLIN-TAZOB 3.375GM 100 ML IV SCH ×4 (06:57→23:54)
[2020-10-23] MEDS: ACCU-CHEK COMFORT CURVE STRIP VI SCH ×4 (06:57→23:54)
[2020-10-23] MEDS: LEVOTHYROXINE SODIUM 50 MCG TAB PO SCH (06:57)
[2020-10-23] MEDS: InsuLIN REG 1unit/0.01ml Soln (100units/ml) SC SCH ×3 (06:58→18:00)
[2020-10-23 07:01] LABS: Albumin 2.4 g/dL (3.4-5.0); Calcium 7.7 mg/dL (8.5-10.1)
[2020-10-23 07:04] LABS: Total Protein 6.1 g/dL (6.4-8.2)
[2020-10-23 07:10] LABS: Potassium 2.9 mmol/L (3.5-5.1)
[2020-10-23 08:57] LABS: Basophils # (auto) 0.1 10 ^3/uL (0-0.2); Eosinophils # (auto) 0.2 10 ^3/uL (0-0.8); Eosinophils % (auto) 4.6 % (0.0-7.0); Hematocrit 26.9 % (41.0-53.0); Lymphocytes # (auto) 0.7 10 ^3/uL (0.4-5.4); Lymphocytes % (auto) 14.1 % (10.0-50.0); Mean Corpuscular Hemoglobin 30.7 pg (28.0-32.0); Mean Corpuscular Hgb Conc. 33.3 g/dL (32.0-36.0); Mean Corpuscular Volume 92.2 fL (80.0-100.0); Monocytes # (auto) 0.6 10 ^3/uL (0-1.3); Monocytes % (auto) 11.1 % (0.0-12.0); Neutrophils # (auto) 3.5 10 ^3/uL (1.6-8.6); Neutrophils % (auto) 68.2 % (37.0-80.0); Red Blood Cells 2.92 10^6/uL (4.5-5.90); Red Cell Distribution Width 21.2 % (11.8-14.3); White Blood Cell 5.2 10^3/uL (4.4-10.8)
[2020-10-23 09:00] VITALS: BP 89/47
[2020-10-23] MEDS ORDERED: SODIUM CHLORIDE 0.9% 500 ML IV ONE (09:00)
[2020-10-23] MEDS ORDERED: APIXABAN 5 MG TAB PO SCH (10:00)
[2020-10-23] MEDS: DOCUSATE SOD 100 MG CAP PO SCH (10:09)
[2020-10-23] MEDS: LACTULOSE 20Gm/30ML SOLN PO SCH ×2 (10:09→18:06)
[2020-10-23] MEDS: AMIODARONE HCL 200 MG TAB PO SCH (10:10)
[2020-10-23] MEDS: POTASSIUM CHL 20 Meq TABLET PO SCH (10:10)
[2020-10-23] MEDS: VANCOMYCIN 1GM/250ML 250 ML IV SCH ×2 (11:00→21:25)
[2020-10-23 12:36] VITALS: BP 113/69
[2020-10-23 17:00] VITALS: BP 113/73
[2020-10-23] MEDS ORDERED: TEMAZEPAM 15 MG CAP PO ONE (21:45)
[2020-10-23 22:00] VITALS: BP 99/59
[2020-10-23] MEDS: HYDROcodone-ACET 5/325MG TAB PO PRN (23:46)
[2020-10-24 05:00] VITALS: BP 102/70
[2020-10-24] MEDS: InsuLIN REG 1unit/0.01ml Soln (100units/ml) SC SCH ×4 (06:00→17:52)
[2020-10-24] MEDS: ACCU-CHEK COMFORT CURVE STRIP VI SCH ×3 (06:06→17:52)
[2020-10-24] MEDS: LACTULOSE 20Gm/30ML SOLN PO SCH ×2 (06:06→18:56)
[2020-10-24] MEDS: PIPERACILLIN-TAZOB 3.375GM 100 ML IV SCH ×2 (06:06→12:21)
[2020-10-24] MEDS: LEVOTHYROXINE SODIUM 50 MCG TAB PO SCH (06:06)
[2020-10-24 06:31] LABS: Potassium 2.6 mmol/L (3.5-5.1)
[2020-10-24] MEDS: HYDROcodone-ACET 5/325MG TAB PO PRN ×3 (06:43→20:18)
[2020-10-24] MEDS ORDERED: POTASSIUM CHL 20 Meq TABLET PO ONE (06:45)
[2020-10-24] MEDS ORDERED: POTASSIUM CHL 20MEQ/100ML 100 ML IV SCH (06:45)
[2020-10-24 06:47] LABS: BUN/Creatinine Ratio 19.6
[2020-10-24 08:51] VITALS: BP 96/67
[2020-10-24 09:32] LABS: Basophils # (auto) 0.1 10 ^3/uL (0-0.2); Basophils % (auto) 1.8 % (0.0-2.0); Eosinophils # (auto) 0.3 10 ^3/uL (0-0.8); Hematocrit 26.3 % (41.0-53.0); Lymphocytes # (auto) 0.8 10 ^3/uL (0.4-5.4); Lymphocytes % (auto) 17.4 % (10.0-50.0); Mean Corpuscular Hemoglobin 31.3 pg (28.0-32.0); Mean Corpuscular Volume 91.9 fL (80.0-100.0); Monocytes # (auto) 0.5 10 ^3/uL (0-1.3); Monocytes % (auto) 11.8 % (0.0-12.0); Neutrophils # (auto) 2.9 10 ^3/uL (1.6-8.6); Red Blood Cells 2.86 10^6/uL (4.5-5.90); Red Cell Distribution Width 21.3 % (11.8-14.3); White Blood Cell 4.6 10^3/uL (4.4-10.8)
[2020-10-24 10:05] LABS: Free T3 1.94 pg/mL (2.3-4.2); Free T4 (Free Thyroxine) 1.07 ng/dL (0.89-1.76)
[2020-10-24] MEDS ORDERED: SPIRONOLACTONE 25 MG TAB PO ONE (11:15)
[2020-10-24] MEDS: POTASSIUM CHL 20 Meq TABLET PO SCH (12:20)
[2020-10-24] MEDS: DOCUSATE SOD 100 MG CAP PO SCH (12:20)
[2020-10-24] MEDS: AMIODARONE HCL 200 MG TAB PO SCH (12:20)
[2020-10-24 12:30] VITALS: BP 102/73
[2020-10-24] MEDS ORDERED: POTASSIUM EFFERVESENT TAB 25 MEQ PO ONE ×2 (12:45→16:15)
[2020-10-24] MEDS: VANCOMYCIN 1GM/250ML 250 ML IV SCH (13:45)
[2020-10-24 13:54] LABS: BUN/Creatinine Ratio 19.3; Calcium 7.5 mg/dL (8.5-10.1)
[2020-10-24 13:57] LABS: Potassium 2.9 mmol/L (3.5-5.1)
[2020-10-24] MEDS ORDERED: CLIN-203 PO (16:30)
[2020-10-24] MEDS ORDERED: APIX5TAB PO (16:30)
[2020-10-24] MEDS ORDERED: POTA-220 PO (16:30)
[2020-10-24 17:01] VITALS: BP 106/69
[2020-10-24] MEDS: POTASSIUM CHL 20MEQ/100ML 100 ML IV SCH ×2 (17:39→18:56)
[2020-10-24 20:06] LABS: BUN/Creatinine Ratio 17.6; Calcium 7.6 mg/dL (8.5-10.1)
[2020-10-24 21:00] VITALS: BP 108/69
[2020-10-24] MEDS ORDERED: PIPERACILLIN-TAZOB 3.375GM 100 ML IV SCH (21:00)
[2020-10-24] MEDS: APIXABAN 5 MG TAB PO SCH (21:14)
[2020-10-25] MEDS ORDERED: VANCOMYCIN 1GM/250ML 250 ML IV SCH
[2020-10-25] MEDS: HYDROcodone-ACET 5/325MG TAB PO PRN ×2 (02:30→20:44)
[2020-10-25 05:00] VITALS: BP 110/75
[2020-10-25] MEDS: InsuLIN REG 1unit/0.01ml Soln (100units/ml) SC SCH ×4 (06:00→17:37)
[2020-10-25] MEDS: ACCU-CHEK COMFORT CURVE STRIP VI SCH ×4 (06:37→17:37)
[2020-10-25] MEDS: LEVOTHYROXINE SODIUM 50 MCG TAB PO SCH (06:38)
[2020-10-25] MEDS: LACTULOSE 20Gm/30ML SOLN PO SCH ×2 (06:38→18:15)
[2020-10-25 06:49] LABS: Basophils # (auto) 0.1 10 ^3/uL (0-0.2); Basophils % (auto) 2.4 % (0.0-2.0); Eosinophils # (auto) 0.3 10 ^3/uL (0-0.8); Hematocrit 25.6 % (41.0-53.0); Hemoglobin 8.9 g/dL (13.5-17.5); Lymphocytes # (auto) 0.7 10 ^3/uL (0.4-5.4); Lymphocytes % (auto) 15.3 % (10.0-50.0); Mean Corpuscular Hgb Conc. 34.9 g/dL (32.0-36.0); Mean Corpuscular Volume 91.8 fL (80.0-100.0); Monocytes # (auto) 0.7 10 ^3/uL (0-1.3); Monocytes % (auto) 13.8 % (0.0-12.0); Neutrophils % (auto) 62.5 % (37.0-80.0); Nucleated Red Blood Cells % 0.1 %; Red Blood Cells 2.79 10^6/uL (4.5-5.90); Red Cell Distribution Width 21.4 % (11.8-14.3); White Blood Cell 4.8 10^3/uL (4.4-10.8)
[2020-10-25 09:00] VITALS: BP 101/71
[2020-10-25] MEDS: APIXABAN 5 MG TAB PO SCH ×2 (10:00→21:44)
[2020-10-25] MEDS: AMIODARONE HCL 200 MG TAB PO SCH (10:00)
[2020-10-25] MEDS: DOCUSATE SOD 100 MG CAP PO SCH (10:00)
[2020-10-25] MEDS: POTASSIUM CHL 20 Meq TABLET PO SCH (10:00)
[2020-10-25 13:00] VITALS: BP 114/82
[2020-10-25 17:00] VITALS: BP 109/78
[2020-10-25 22:00] VITALS: BP 112/73
[2020-10-26] MEDS: ACCU-CHEK COMFORT CURVE STRIP VI SCH ×4 (01:11→18:03)
[2020-10-26] MEDS: HYDROcodone-ACET 5/325MG TAB PO PRN (02:49)
[2020-10-26 05:00] VITALS: BP 98/72
[2020-10-26] MEDS: LACTULOSE 20Gm/30ML SOLN PO SCH (05:58)
[2020-10-26] MEDS: InsuLIN REG 1unit/0.01ml Soln (100units/ml) SC SCH ×4 (05:58→18:00)
[2020-10-26] MEDS: LEVOTHYROXINE SODIUM 50 MCG TAB PO SCH (05:59)
[2020-10-26 09:00] VITALS: BP 109/77
[2020-10-26] MEDS: POTASSIUM CHL 20 Meq TABLET PO SCH (10:00)
[2020-10-26] MEDS: DOCUSATE SOD 100 MG CAP PO SCH (10:00)
[2020-10-26] MEDS: APIXABAN 5 MG TAB PO SCH (10:00)
[2020-10-26] MEDS: AMIODARONE HCL 200 MG TAB PO SCH (10:00)
[2020-10-26 13:00] VITALS: BP 107/72
[2020-10-26 17:00] VITALS: BP 107/69
[2020-10-26] MEDS ORDERED: PROMETHAZINE HCL 25 MG/ML 1ML IM ONE (20:50)
[2020-10-26] MEDS ORDERED: PROMETHAZINE HCL 25 MG/ML 1ML ONE (21:00)
== END 2020-10-26 21:15 | disposition home health service (06) | DRG 206 ==
LOC: EDBD 18:39 → EDUNIT# 18:39 → ER 18:42 → EAST 10-23 06:02 → TELE-EAST 10-23 06:32
PROVIDERS: ADMIT Hospitalist; ATTEND Internal Medicine
DX: T82.897A Other specified complication of cardiac prosthetic devices, implants and grafts, initial encounter (principal); G93.41 Metabolic encephalopathy; E11.40 Type 2 diabetes mellitus with diabetic neuropathy, unspecified; E11.649 Type 2 diabetes mellitus with hypoglycemia without coma; E83.51 Hypocalcemia; I42.9 Cardiomyopathy, unspecified; L97.919 Non-pressure chronic ulcer of unspecified part of right lower leg with unspecified severity; E87.6 Hypokalemia; I50.9 Heart failure, unspecified; I25.10 Atherosclerotic heart disease of native coronary artery without angina pectoris; K21.9 Gastro-esophageal reflux disease without esophagitis; E78.5 Hyperlipidemia, unspecified; Y84.8 Other medical procedures as the cause of abnormal reaction of the patient, or of later complication, without mention of misadventure at the time of the procedure; L97.929 Non-pressure chronic ulcer of unspecified part of left lower leg with unspecified severity; J44.9 Chronic obstructive pulmonary disease, unspecified; I48.0 Paroxysmal atrial fibrillation; Z20.822 Contact with and (suspected) exposure to COVID-19; F15.10 Other stimulant abuse, uncomplicated; F17.210 Nicotine dependence, cigarettes, uncomplicated; I11.0 Hypertensive heart disease with heart failure; Z59.0 Homelessness; Z91.013 Allergy to seafood; Z95.810 Presence of automatic (implantable) cardiac defibrillator; Z82.49 Family history of ischemic heart disease and other diseases of the circulatory system; Z83.3 Family history of diabetes mellitus; Z91.14 Patient's other noncompliance with medication regimen; Z91.19 Patient's noncompliance with other medical treatment and regimen; Z98.61 Coronary angioplasty status
CPT/HCPCS: 36415; 70450; 71045; 80048; 80053; 80202; 80307; 81001; 82140; 82565; 82962; 83605; 83735; 83880; 84132; 84439; 84443; 84481; 84484; 85025; 85049; 87040; 87077; 87081; 87186; 87205; 87426; 93005; 96365; 96375; 99291; G0378; J2405; J2543; J3480